=== PATIENT | female | born 1985 | race Caucasian/White ===

== ENCOUNTER 2017-12-01 15:50 | Emergency (ER) | payer MEDICAID ==
[~2017-12-01] VITALS: Ht 175.3 cm; Wt 79.4 kg
[~2017-12-01 15:50] MED LIST: ALBU17AE23 IH; AMOX500C2 PO; CYCL10TA9 PO; FERR-57 PO; HYDR-3583 PO; ONDA-43 PO; OXYC-12 PO; PREN1TAB39 PO; SERT50TA PO
--- OUTSIDE RECORDS SUMMARY | 2017-12-01 15:56 | XMS REPORT | Continuity Of Care Document ---
Author Author [facility] Organization [facility] Address [address] [place] [address] Phone Care Team Providers Care Incubator Machine Operator Name Role Phone UNASSIGNED, ED PHYSICIAN Unavailable Unavailable LEIF SALAMANCA, LENNY Morocho AT [phone] DARLEEN SALAMANCA, MAYRA Colvin [facility], [facility] PP Results Lab Results Visit/Account #[id number] (March 31, 2016 8:54pm - April 01, 2016 12:51am) Test Result Date/Time 19103-1: COMPLETE BLOOD COUNT WITH DIFF WHITE BLOOD COUNT(4.0-11.0 10E3/UL) 8.0 10E3/UL March 31, 2016 10:43pm RED BLOOD COUNT(4.00-5.20 10E6/UL) 3.67 10E6/UL March 31, 2016 10:43pm HEMOGLOBIN(12.0-16.0 G/DL) 10.7 G/DL March 31, 2016 10:43pm HEMATOCRIT(36.0-46.0 %) 33.6 % March 31, 2016 10:43pm MEAN CORPUSCULAR VOLUME(82.0-100.0 FL) 91.6 FL March 31, 2016 10:43pm 34480-1: MEAN CORPUSCULAR HEMOGLOBIN(26.0-34.0 PG) 29.2 PG March 31, 2016 10:43pm MEAN CORPUSCULAR HGB CONC(31.5-36.5 G/DL) 31.8 G/DL March 31, 2016 10:43pm RED CELL DISTRIBUTION WIDTH(11.5-14.5 %) 14.1 % March 31, 2016 10:43pm 777-3: PLATELET COUNT(150-450 10E3/UL) 233 10E3/UL March 31, 2016 10:43pm MEAN PLATELET VOLUME(8.2-12.4 FL) 10.7 FL March 31, 2016 10:43pm 770-8: NEUTROPHILS % (AUTO)(40-70 %) 45 % March 31, 2016 10:43pm LYMPHOCYTES % (AUTO)(15-45 %) 47 % March 31, 2016 10:43pm 5905-5: MONOCYTES % (AUTO)(2-10 %) 6 % March 31, 2016 10:43pm 713-8: EOSINOPHILS % (AUTO)(0-6 %) 1 % March 31, 2016 10:43pm 706-2: BASOPHILS % (AUTO)(0-1 %) 0 % March 31, 2016 10:43pm 94730-8: IMMATURE GRANS % (AUTO)(0-0 %) 0 % March 31, 2016 10:43pm NUCLEATED RBCS (AUTO)(0-0 %) 0 % March 31, 2016 10:43pm 751-8: NEUTROPHILS # (AUTO)(2.5-7.5 10E3/UL) 3.6 10E3/UL March 31, 2016 10:43pm 73159-1: LYMPHOCYTES # (AUTO)(1.0-4.0 10E3/UL) 3.8 10E3/UL March 31, 2016 10:43pm 742-7: MONOCYTES # (AUTO)(0.2-0.8 10E3/UL) 0.5 10E3/UL March 31, 2016 10:43pm 711-2: EOSINOPHILS # (AUTO)(0.0-0.4 10E3/UL) 0.1 10E3/UL March 31, 2016 10:43pm 704-7: BASOPHILS # (AUTO)(0.0-0.2 10E3/UL) 0.0 10E3/UL March 31, 2016 10:43pm IMMATURE GRANS # (AUTO)(0.0-0.0 10E3/UL) 0.0 10E3/UL March 31, 2016 10:43pm DIFF TYPE AUTOMATED March 31, 2016 10:43pm UA WITH SCREEN FOR CULTURE 5778-6: COLOR,URINE YELLOW March 31, 2016 10:35pm 67081-6: CLARITY,URINE CLEAR March 31, 2016 10:35pm GLUCOSE, URINE(NEGATIVE MG/DL) NEGATIVE MG/DL March 31, 2016 10:35pm URINE BILIRUBIN(NEGATIVE) NEGATIVE March 31, 2016 10:35pm KETONES,URINE(NEGATIVE MG/DL) 15 MG/DL March 31, 2016 10:35pm URINE SPECIFIC GRAVITY(1.001-1.035) Greater than or equal to 1.030 March 31, 2016 10:35pm 14066-3: URINE BLOOD(NEGATIVE) NEGATIVE March 31, 2016 10:35pm 2756-5: URINE PH(5.0-9.0) 6.0 March 31, 2016 10:35pm URINE PROTEIN(Less than 20 MG/DL) NEGATIVE MG/DL March 31, 2016 10:35pm 19968-8: URINE UROBILINOGEN(0.2-1.0 MG/DL) 0.2 MG/DL March 31, 2016 10:35pm URINE NITRITE(NEGATIVE) NEGATIVE March 31, 2016 10:35pm 5799-2: LEUKOCYTE ESTERASE ,URINE(NEGATIVE) NEGATIVE March 31, 2016 10:35pm 630-4: URINE CULTURE NOT INDICATED March 31, 2016 10:35pm URINE MICROSCOPIC REQUIRED NO March 31, 2016 10:35pm 93867-0: COMPLETE METABOLIC PROFILE GLUCOSE(70-110 MG/DL) 89 MG/DL March 31, 2016 10:43pm BLOOD UREA NITROGEN(6-20 MG/DL) 12 MG/DL March 31, 2016 10:43pm CREATININE(0.50-1.20 MG/DL) 0.80 MG/DL March 31, 2016 10:43pm 03120-8: EST GLOMERULAR FILTRATION RATE(Greater than or equal to 60) Greater than or equal to 60 Result Comments: If the patient is of -[place] Citizen descent/extraction multiply the eGFR value by 1.212 to obtain the actual eGFR. >=60 mg/dL Normal 30-59 mg/dL Moderate Kidney Disease 15-29 mg/dL Severe Kidney Disease <15 mg/dL Kidney Failure March 31, 2016 10:43pm BUN CREATININE RATIO(10.0-20.0 RATIO) 15.0 RATIO March 31, 2016 10:43pm SODIUM(135-145 MMOL/L) 142 MMOL/L March 31, 2016 10:43pm POTASSIUM(3.6-5.0 MMOL/L) 3.1 MMOL/L March 31, 2016 10:43pm CHLORIDE(101-111 MMOL/L) 105 MMOL/L March 31, 2016 10:43pm 8-9: CO2(21-31 MMOL/L) 25 MMOL/L March 31, 2016 10:43pm ANION GAP(8-18) 15 March 31, 2016 10:43pm OSMO CALCULATED(270.0-290.0) 282.4 March 31, 2016 10:43pm CALCIUM(8.5-10.5 MG/DL) 9.2 MG/DL March 31, 2016 10:43pm BILIRUBIN,TOTAL(0.1-1.2 MG/DL) 0.5 MG/DL March 31, 2016 10:43pm ALKALINE PHOSPHATASE(42-121 IU/L) 48 IU/L March 31, 2016 10:43pm ASPARTATE AMINO TRANSFERASE(10-42 IU/L) 40 IU/L March 31, 2016 10:43pm ALANINE AMINOTRANSFERASE(10-60 IU/L) 20 IU/L March 31, 2016 10:43pm TOTAL PROTEIN(6.4-8.2 G/DL) 7.2 G/DL March 31, 2016 10:43pm ALBUMIN(3.5-5.5 G/DL) 4.3 G/DL March 31, 2016 10:43pm GLOBULIN(2.4-3.6) 2.9 March 31, 2016 10:43pm ALBUMIN/GLOBULIN RATIO(0.9-1.8 RATIO) 1.5 RATIO March 31, 2016 10:43pm SERUM HCG, QUALITATIVE 0-5: SERUM HCG, QUALITATIVE(NEGATIVE) NEGATIVE March 31, 2016 10:43pm DRUGS OF ABUSE, URINE 76626-2: OPIATE SCREEN,URINE(NEGATIVE) NEGATIVE March 31, 2016 10:35pm 33979-8: BARBITURATES SCREEN, URINE(NEGATIVE) NEGATIVE March 31, 2016 10:35pm 61070-2: AMPHETAMINE SCREEN,URINE(NEGATIVE) NEGATIVE March 31, 2016 10:35pm BENZODIAZEPINES SCREEN,URINE(NEGATIVE) NEGATIVE March 31, 2016 10:35pm COCAINE SCREEN, URINE(NEGATIVE) NEGATIVE Result Comments: CUTOFF: 300 ng/mL March 31, 2016 10:35pm CANNABINOID SCREEN,URINE(NEGATIVE) PRESUMPTIVE POSITIVE March 31, 2016 10:35pm Allergies and Adverse Reactions Allergies and Adverse Reactions Patient Unit Number: [id number] Agent Type Reaction Severity Status NO KNOWN ALLERGIES Drug Allergy Unknown Unknown Active Problem List Problem List Visit/Account #[id number] (March 31, 2016 8:54pm - April 01, 2016 12:51am) Acute Problems: Code/Condition Comments Documented Start Date Documented Resolved Date Code (s) Marijuana use ICD10: F12.10 Cannabis abuse ICD9: 305.20 Cannabis abuse SNOMED: 39804443 Cannabis abuse Hypokalemia ICD10: E87.6 Hypokalemia ICD9: 276.8 Hypokalemia SNOMED: 44555807 Hypokalemia Plan of Care Plan Of Care Visit/Account #[id number] (March 31, 2016 8:54pm - April 01, 2016 12:51am) Patient Instructions Take potassium as prescribed Avoid utilizing illicit substances such as marijuana Followup with PCP as needed Vital Signs Vital Signs Visit/Account #[id number] (March 31, 2016 8:54pm - April 01, 2016 12:51am) Sign First Result Last Result Code(s) Body Mass Index Body Mass Index (BMI): 25.0 kg/m2 On March 31, 2016 8:54pm 65418-7 BMI (body mass index) Body Mass Index as a Calculated Value 25.9 kg/m2 On March 31, 2016 8:54pm 16130-4 BMI (body mass index) Body Surface Area as a Calculated Value 1.95 m2 On March 31, 2016 8:54pm 3140-1 BSA (body surface area) Height (Feet/Inches) 5 [ft_us] 9 [in_us] On March 31, 2016 8:54pm Temperature in Fahrenheit Temperature (Fahrenheit): 97.4 [degF] On March 31, 2016 8:54pm Temperature (Fahrenheit): 97.6 [degF] On April 01, 2016 12:30am 8310-5 Body Temperature Weight in Kilograms Weight (Kilograms): 79.55 kg On March 31, 2016 8:54pm 3141-9 Weight Measured 60972-7 Body weight measured in kilograms Functional Status Functional and Cognitive Status No Functional Status Data Medications Discharge Medications - Medications that patient should continue to take. Review with physician Visit/Account #[id number] (March 31, 2016 8:54pm - April 01, 2016 12:51am) Medication Route Sig/Schedule Precondition/Indication Comments/Instructions Codes POTASSIUM CHLORIDE(POTASSIUM CHLORIDE) 20 MEQ TAB.ER.PRT Dose: 20 MEQ ORAL 3 TIMES A DAY Potassium Chloride 20 MEQ Extended Release Oral Tablet (RxNorm): 323804 POTASSIUM CHLORIDE (POTASSIUM CHLORIDE) NDC: 59210758102 History Of Encounters Encounters Visit/Account #[id number] (March 31, 2016 8:54pm - April 01, 2016 12:51am) Account Status Physican Of Record Reason For Visit Visit Diagnosis Start Date/Time Stop Date/Time ER LENNY YADAV MD ABD CRAMPING, PREG X 7 WKS R10.31: RIGHT LOWER QUADRANT PAIN ICD10 Mar 31, 2016 8:54pm Apr 01, 2016 12:51am History of Procedures Procedure List No procedures recorded. Discharge Instructions Discharge Instructions Visit/Account #[id number] (March 31, 2016 8:54pm - April 01, 2016 12:51am) DISCHARGE INSTRUCTIONS Physician Documentation Social History Social History No Social History Data. Immunizations Immunizations Patient Unit Number: [id number] Immunizations No immunizations recorded.
--- OUTSIDE RECORDS SUMMARY | 2017-12-01 15:56 | XMS REPORT | Continuity Of Care Document ---
Author Author [facility] Organization [facility] Address [address] [place] [address] Phone Care Team Providers Care Inventory Audit Clerk Name Role Phone JELLY SALAMANCA, HELLEN AT Results Lab Results Visit/Account #[id number] (July 22, 2015 9:16am - July 22, 2015 12:24pm ) Test Result Date/Time 16602-5: COMPLETE BLOOD COUNT WITH DIFF WHITE BLOOD COUNT(4.0-11.0 10E3/UL) 9.6 10E3/UL July 22, 2015 9:30am RED BLOOD COUNT(4.00-5.20 10E6/UL) 3.95 10E6/UL July 22, 2015 9:30am HEMOGLOBIN(12.0-16.0 G/DL) 11.7 G/DL July 22, 2015 9:30am HEMATOCRIT(36.0-46.0 %) 36.1 % July 22, 2015 9:30am MEAN CORPUSCULAR VOLUME(82.0-100.0 FL) 91.4 FL July 22, 2015 9:30am 34263-4: MEAN CORPUSCULAR HEMOGLOBIN(26.0-34.0 PG) 29.6 PG July 22, 2015 9:30am MEAN CORPUSCULAR HGB CONC(31.5-36.5 G/DL) 32.4 G/DL July 22, 2015 9:30am RED CELL DISTRIBUTION WIDTH(11.5-14.5 %) 12.7 % July 22, 2015 9:30am 777-3: PLATELET COUNT(150-450 10E3/UL) 282 10E3/UL July 22, 2015 9:30am MEAN PLATELET VOLUME(8.2-12.4 FL) 10.4 FL July 22, 2015 9:30am 770-8: NEUTROPHILS % (AUTO)(40-70 %) 55 % July 22, 2015 9:30am LYMPHOCYTES % (AUTO)(15-45 %) 37 % July 22, 2015 9:30am 5905-5: MONOCYTES % (AUTO)(2-10 %) 6 % July 22, 2015 9:30am 713-8: EOSINOPHILS % (AUTO)(0-6 %) 1 % July 22, 2015 9:30am 706-2: BASOPHILS % (AUTO)(0-1 %) 1 % July 22, 2015 9:30am 89958-4: IMMATURE GRANS % (AUTO)(0-0 %) 1 % July 22, 2015 9:30am NUCLEATED RBCS (AUTO)(0-0 %) 0 % July 22, 2015 9:30am 751-8: NEUTROPHILS # (AUTO)(2.5-7.5 10E3/UL) 5.3 10E3/UL July 22, 2015 9:30am 61775-6: LYMPHOCYTES # (AUTO)(1.0-4.0 10E3/UL) 3.5 10E3/UL July 22, 2015 9:30am 742-7: MONOCYTES # (AUTO)(0.2-0.8 10E3/UL) 0.5 10E3/UL July 22, 2015 9:30am 711-2: EOSINOPHILS # (AUTO)(0.0-0.4 10E3/UL) 0.1 10E3/UL July 22, 2015 9:30am 704-7: BASOPHILS # (AUTO)(0.0-0.2 10E3/UL) 0.1 10E3/UL July 22, 2015 9:30am IMMATURE GRANS # (AUTO)(0.0-0.0 10E3/UL) 0.1 10E3/UL July 22, 2015 9:30am DIFF TYPE AUTOMATED July 22, 2015 9:30am UA WITH SCREEN FOR CULTURE 5778-6: COLOR,URINE YELLOW July 22, 2015 9:20am 09998-4: CLARITY,URINE SL CLOUDY July 22, 2015 9:20am GLUCOSE, URINE(NEGATIVE MG/DL) NEGATIVE MG/DL July 22, 2015 9:20am URINE BILIRUBIN(NEGATIVE) NEGATIVE July 22, 2015 9:20am 44979-9: KETONES,URINE(NEGATIVE MG/DL) NEGATIVE MG/DL July 22, 2015 9:20am 2965-2: URINE SPECIFIC GRAVITY(1.001-1.035) 1.025 July 22, 2015 9:20am 64013-9: URINE BLOOD(NEGATIVE) NEGATIVE July 22, 2015 9:20am 2756-5: URINE PH(5.0-9.0) 6.5 July 22, 2015 9:20am URINE PROTEIN(Less than 20 MG/DL) NEGATIVE MG/DL July 22, 2015 9:20am URINE UROBILINOGEN(0.2-1.0 MG/DL) 0.2 MG/DL July 22, 2015 9:20am URINE NITRITE(NEGATIVE) NEGATIVE July 22, 2015 9:20am 5799-2: LEUKOCYTE ESTERASE ,URINE(NEGATIVE) NEGATIVE July 22, 2015 9:20am 630-4: URINE CULTURE NOT INDICATED July 22, 2015 9:20am URINE MICROSCOPIC REQUIRED NO July 22, 2015 9:20am 76545-7: COMPLETE METABOLIC PROFILE GLUCOSE(70-110 MG/DL) 110 MG/DL July 22, 2015 9:30am BLOOD UREA NITROGEN(6-20 MG/DL) 15 MG/DL July 22, 2015 9:30am CREATININE(0.50-1.20 MG/DL) 0.77 MG/DL July 22, 2015 9:30am 20874-7: EST GLOMERULAR FILTRATION RATE(Greater than or equal to 60) Greater than or equal to 60 Result Comments: If the patient is of -[place] descent/extraction multiply the eGFR value by 1.212 to obtain the actual eGFR. >=60 mg/dL Normal 30-59 mg/dL Moderate Kidney Disease 15-29 mg/dL Severe Kidney Disease <15 mg/dL Kidney Failure July 22, 2015 9:30am BUN CREATININE RATIO(10.0-20.0 RATIO) 19.0 RATIO July 22, 2015 9:30am SODIUM(135-145 MMOL/L) 137 MMOL/L July 22, 2015 9:30am POTASSIUM(3.6-5.0 MMOL/L) 3.6 MMOL/L July 22, 2015 9:30am CHLORIDE(101-111 MMOL/L) 105 MMOL/L July 22, 2015 9:30am 8-9: CO2(21-31 MMOL/L) 25.0 MMOL/L July 22, 2015 9:30am 30561-4: ANION GAP(8-18) 11 July 22, 2015 9:30am OSMO CALCULATED(270.0-290.0) 275.3 July 22, 2015 9:30am CALCIUM(8.5-10.5 MG/DL) 8.7 MG/DL July 22, 2015 9:30am BILIRUBIN,TOTAL(0.1-1.2 MG/DL) 0.5 MG/DL July 22, 2015 9:30am ALKALINE PHOSPHATASE(42-121 IU/L) 79 IU/L July 22, 2015 9:30am ASPARTATE AMINO TRANSFERASE(10-42 IU/L) 26 IU/L July 22, 2015 9:30am ALANINE AMINOTRANSFERASE(10-60 IU/L) 17 IU/L July 22, 2015 9:30am 62194-3: TOTAL PROTEIN(6.4-8.2 G/DL) 7.8 G/DL July 22, 2015 9:30am ALBUMIN(3.5-5.5 G/DL) 4.1 G/DL July 22, 2015 9:30am 2336-6: GLOBULIN(2.4-3.6) 3.7 July 22, 2015 9:30am ALBUMIN/GLOBULIN RATIO(0.9-1.8 RATIO) 1.1 RATIO July 22, 2015 9:30am 3040-3: LIPASE 3040-3: LIPASE(22-51 U/L) 19 U/L July 22, 2015 9:30am SERUM HCG, QUALITATIVE 2110-5: SERUM HCG, QUALITATIVE(NEGATIVE) NEGATIVE July 22, 2015 9:30am Microbiology Results Visit/Account #[id number] (July 22, 2015 9:16am - July 22, 2015 12:24pm ) Procedure Result 667-6: ANA ROSA PREP OTHER 667-6: ANA ROSA PREP OTHER Result Instance On July 22, 2015 11:50am Source: [facility] Result Prompts: ANA ROSA RESULT NO YEAST OR FUNGAL ELEMENTS SEEN 41563-1: CHLAMYDIA TRACHOMATIS (PCR) 64708-7: CHLAMYDIA TRACHOMATIS (PCR) Result Instance On July 22, 2015 11:50am Source: [facility] Result Prompts: CHLAMYDIA TRACHOMATIS POSITIVE NEISSERIA GONORRHOEAE (PCR) NEISSERIA GONORRHOEAE (PCR) Result Instance On July 22, 2015 11:50am Source: [facility] Result Prompts: NEISSERIA GONORRHOEAE NEGATIVE Allergies and Adverse Reactions Allergies and Adverse Reactions Patient Unit Number: [id number] Agent Type Reaction Severity Status NO KNOWN ALLERGIES Drug Allergy Unknown Unknown Active Problem List Problem List Visit/Account #[id number] (July 22, 2015 9:16am - July 22, 2015 12:24pm ) Acute Problems: Code/Condition Comments Documented Start Date Documented Resolved Date Code (s) PID (acute pelvic inflammatory disease) ICD10: N73.0 Acute pelvic inflammatory disease ICD9: 614.3 Acute pelvic inflammatory disease SNOMED: 220941749 Acute pelvic inflammatory disease Plan of Care Plan Of Care Visit/Account #[id number] (July 22, 2015 9:16am - July 22, 2015 12:24pm ) Patient Instructions Take doxycycline as prescribed twice daily x 14 days, follow-up with primary care provider. Vital Signs Vital Signs Visit/Account #[id number] (July 22, 2015 9:16am - July 22, 2015 12:24pm ) Sign First Result Last Result Code(s) Body Mass Index Body Mass Index (BMI): 30.0 kg/m2 On July 22, 2015 9:13am 42936-2 BMI (body mass index) Body Mass Index as a Calculated Value 31.0 kg/m2 On July 22, 2015 9:13am 40736-0 BMI (body mass index) Body Surface Area as a Calculated Value 2.11 m2 On July 22, 2015 9:13am 3140-1 BSA (body surface area) Height (Feet/Inches) 5 [ft_us] 9 [in_us] On July 22, 2015 9:13am Temperature in Fahrenheit Temperature (Fahrenheit): 97.2 [degF] On July 22, 2015 9:13am Temperature (Fahrenheit): 97.9 [degF] On July 22, 2015 12:20pm 8310-5 Body Temperature Weight in Kilograms Weight (Kilograms): 95.2 kg On July 22, 2015 9:13am 3141-9 Weight Measured 45923-1 Body weight measured in kilograms Functional Status Functional and Cognitive Status No Functional Status Data Medications Inpatient/Ordered Medications - Medications administered during hospital visit Visit/Account #[id number] (July 22, 2015 9:16am - July 22, 2015 12:24pm ) Medication Route Sig/Schedule Precondition/Indication Comments/Instructions Codes SUBLIMAZE INJ(FentaNYL CITRATE) 100 MCG/2 ML INJECTION Dose: 1 ML INTRAVEN NOW Rx Order Comments: Order placed as verified: Dose Warnings differ from reordering clerk Dose Warnings differ from reordering clerk Label Comments: GIVE BY SLOW PUSH OVER 2-5 MIN MAY INCREASE FALL RISK Fentanyl 0.05 MG/ML Injectable Solution (RxNorm): 820904 SUBLIMAZE INJ (FentaNYL CITRATE) NDC: 39237629428 ROCEPHIN INJ(CefTRIAXone SOD) 250 MG INJECTION Dose: 250 MG INTRAMUSC NOW Rx Order Comments: Order placed as verified: Allergies/Duplicates/Interactions differ from reordering clerk Dose Warnings differ from reordering clerk Ceftriaxone 250 MG/ML Injectable Solution (RxNorm): 378128 ROCEPHIN INJ (CefTRIAXone SOD) NDC: 21128000299 XYLOCAINE-MPF 1% INJ(LIDOCAINE HCL/PF) 20 MG/2 ML INJECTION Dose: 0.9 ML INTRAMUSC .DRUG DILUTION Rx Order Comments: Order placed as verified: Allergies/Duplicates/Interactions differ from reordering clerk Dose Warnings differ from reordering clerk Special Dose Instructions: DILUTE 250 MG ROCEPHIN VIAL WITH 0.9 ML FOR FINAL CONCENTRATION OF 250 MG/ML Lidocaine Hydrochloride 10 MG/ML Injectable Solution [Xylocaine] (RxNorm): 3617341 XYLOCAINE-MPF 1% INJ (LIDOCAINE HCL/PF) NDC: 88351334960 ZITHROMAX(AZITHROMYCIN) 500 MG TAB Dose: 1000 MG ORAL NOW Rx Order Comments: Order placed as verified: Dose Warnings differ from reordering clerk Dose Warnings differ from reordering clerk Azithromycin 500 MG Oral Tablet (RxNorm): 454760 ZITHROMAX (AZITHROMYCIN) NDC: 43390213746 TORADOL INJ(KETOROLAC TROMETHAMINE) 30 MG/ML INJECTION Dose: 1 ML INTRAVEN NOW Rx Order Comments: Order placed as verified: Dose Warnings differ from reordering clerk Dose Warnings differ from reordering clerk Label Comments: DO NOT EXCEED 5 DAYS OF THERAPY Ketorolac Tromethamine 30 MG/ML Injectable Solution (RxNorm): 132076 TORADOL INJ (KETOROLAC TROMETHAMINE) NDC: 89476312134 Discharge Medications - Medications that patient should continue to take. Review with physician Visit/Account #[id number] (July 22, 2015 9:16am - July 22, 2015 12:24pm ) Medication Route Sig/Schedule Precondition/Indication Comments/Instructions Codes VIBRAMYCIN(DOXYCYCLINE HYCLATE) 100 MG CAP Dose: 100 MG ORAL TWICE A DAY doxycycline hyclate 100 MG Oral Capsule (RxNorm): 0239675 VIBRAMYCIN (DOXYCYCLINE HYCLATE) [facility]: [phone] History Of Encounters Encounters Visit/Account #[id number] (July 22, 2015 9:16am - July 22, 2015 12:24pm ) Account Status Physican Of Record Reason For Visit Visit Diagnosis Start Date/Time Stop Date/Time ER HELLEN REAVES MD ABDOMINAL PAIN R10.9: UNSPECIFIED ABDOMINAL PAIN ICD10 Jul 22, 2015 9:16am Jul 22, 2015 12:24pm History of Procedures Procedure List No procedures recorded. Discharge Instructions Discharge Instructions Visit/Account #[id number] (July 22, 2015 9:16am - July 22, 2015 12:24pm ) DISCHARGE INSTRUCTIONS Physician Documentation Social History Social History No Social History Data. Immunizations Immunizations Patient Unit Number: [id number] Immunizations No immunizations recorded.
--- OUTSIDE RECORDS SUMMARY | 2017-12-01 15:57 | XMS REPORT | Continuity Of Care Document ---
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 Name Role Phone UNASSIGNED, ED PHYSICIAN Unavailable Unavailable DARLEEN SALAMANCA, MAYRA Colvin [facility], [facility] KAREN SALAMANCA, ONESIMO Muñiz AT Results Lab Results Visit/Account #[id number] (March 09, 2016 5:56am - March 09, 2016 7:13am) Test Result Date/Time 19822-9: COMPLETE BLOOD COUNT WITH DIFF WHITE BLOOD COUNT(4.0-11.0 10E3/UL) 8.8 10E3/UL March 09, 2016 6:10am RED BLOOD COUNT(4.00-5.20 10E6/UL) 4.12 10E6/UL March 09, 2016 6:10am HEMOGLOBIN(12.0-16.0 G/DL) 12.0 G/DL March 09, 2016 6:10am HEMATOCRIT(36.0-46.0 %) 36.7 % March 09, 2016 6:10am MEAN CORPUSCULAR VOLUME(82.0-100.0 FL) 89.1 FL March 09, 2016 6:10am 59591-5: MEAN CORPUSCULAR HEMOGLOBIN(26.0-34.0 PG) 29.1 PG March 09, 2016 6:10am MEAN CORPUSCULAR HGB CONC(31.5-36.5 G/DL) 32.7 G/DL March 09, 2016 6:10am RED CELL DISTRIBUTION WIDTH(11.5-14.5 %) 13.7 % March 09, 2016 6:10am 777-3: PLATELET COUNT(150-450 10E3/UL) 237 10E3/UL March 09, 2016 6:10am MEAN PLATELET VOLUME(8.2-12.4 FL) 11.0 FL March 09, 2016 6:10am 770-8: NEUTROPHILS % (AUTO)(40-70 %) 46 % March 09, 2016 6:10am LYMPHOCYTES % (AUTO)(15-45 %) 44 % March 09, 2016 6:10a 5905-5: MONOCYTES % (AUTO)(2-10 %) 7 % March 09, 2016 [facility] 713-8: EOSINOPHILS % (AUTO)(0-6 %) 1 % March 09, 2016 6:10am 706-2: BASOPHILS % (AUTO)(0-1 %) 1 % March 09, 2016 6:[facility] 37982-4: IMMATURE GRANS % (AUTO)(0-0 %) 0 % March 09, 2016 6:10am NUCLEATED RBCS (AUTO)(0-0 %) 0 % March 09, 2016 6:10a 751-8: NEUTROPHILS # (AUTO)(2.5-7.5 10E3/UL) 4.1 10E3/UL March 09, 2016 6:10am 86784-9: LYMPHOCYTES # (AUTO)(1.0-4.0 10E3/UL) 3.9 10E3/UL March 09, 2016 [facility] 742-7: MONOCYTES # (AUTO)(0.2-0.8 10E3/UL) 0.6 10E3/UL March 09, 2016 6:10am 711-2: EOSINOPHILS # (AUTO)(0.0-0.4 10E3/UL) 0.1 10E3/UL March 09, 2016 6:10am 704-7: BASOPHILS # (AUTO)(0.0-0.2 10E3/UL) 0.1 10E3/UL March 09, 2016 6:10am IMMATURE GRANS # (AUTO)(0.0-0.0 10E3/UL) 0.0 10E3/UL March 09, 2016 6:10am DIFF TYPE AUTOMATED March 09, 2016 6:10am UA WITH SCREEN FOR CULTURE 5778-6: COLOR,URINE YELLOW March 09, 2016 5:51am 34872-8: CLARITY,URINE CLEAR March 09, 2016 5:51am GLUCOSE, URINE(NEGATIVE MG/DL) NEGATIVE MG/DL March 09, 2016 5:51am URINE BILIRUBIN(NEGATIVE) NEGATIVE March 09, 2016 5:51am KETONES,URINE(NEGATIVE MG/DL) NEGATIVE MG/DL March 09, 2016 5:51am URINE SPECIFIC GRAVITY(1.001-1.035) Greater than or equal to 1.030 March 09, 2016 5:51am 09838-1: URINE BLOOD(NEGATIVE) NEGATIVE March 09, 2016 5:51am 2756-5: URINE PH(5.0-9.0) 5.5 March 09, 2016 5:51am URINE PROTEIN(Less than 20 MG/DL) NEGATIVE MG/DL March 09, 2016 5:51am 82200-9: URINE UROBILINOGEN(0.2-1.0 MG/DL) 0.2 MG/DL March 09, 2016 5:51am URINE NITRITE(NEGATIVE) NEGATIVE March 09, 2016 5:51am 5799-2: LEUKOCYTE ESTERASE ,URINE(NEGATIVE) NEGATIVE March 09, 2016 5:51am 630-4: URINE CULTURE NOT INDICATED March 09, 2016 5:51am URINE MICROSCOPIC REQUIRED NO March 09, 2016 5:51am 92291-7: COMPLETE METABOLIC PROFILE GLUCOSE(70-110 MG/DL) 102 MG/DL March 09, 2016 6:10am BLOOD UREA NITROGEN(6-20 MG/DL) 18 MG/DL March 09, 2016 6:10am CREATININE(0.50-1.20 MG/DL) 0.68 MG/DL March 09, 2016 6:10am 34752-0: EST GLOMERULAR FILTRATION RATE(Greater than or equal to 60) Greater than or equal to 60 Result Comments: If the patient is of -[place] descent/extraction multiply the eGFR value by 1.212 to obtain the actual eGFR. >=60 mg/dL Normal 30-59 mg/dL Moderate Kidney Disease 15-29 mg/dL Severe Kidney Disease <15 mg/dL Kidney Failure March 09, 2016 6:10am BUN CREATININE RATIO(10.0-20.0 RATIO) 26.0 RATIO March 09, 2016 6:10am SODIUM(135-145 MMOL/L) 137 MMOL/L March 09, 2016 6:10am POTASSIUM(3.6-5.0 MMOL/L) 3.5 MMOL/L March 09, 2016 6:10am CHLORIDE(101-111 MMOL/L) 105 MMOL/L March 09, 2016 6:10am 2028-9: CO2(21-31 MMOL/L) 24 MMOL/L March 09, 2016 6:10am ANION GAP(8-18) 12 March 09, 2016 6:10am OSMO CALCULATED(270.0-290.0) 275.9 March 09, 2016 6:10am CALCIUM(8.5-10.5 MG/DL) 9.1 MG/DL March 09, 2016 6:10am BILIRUBIN,TOTAL(0.1-1.2 MG/DL) 0.3 MG/DL March 09, 2016 6:10am ALKALINE PHOSPHATASE(42-121 IU/L) 50 IU/L March 09, 2016 6:10am ASPARTATE AMINO TRANSFERASE(10-42 IU/L) 23 IU/L March 09, 2016 6:10am ALANINE AMINOTRANSFERASE(10-60 IU/L) 24 IU/L March 09, 2016 6:10am TOTAL PROTEIN(6.4-8.2 G/DL) 7.5 G/DL March 09, 2016 6:10am ALBUMIN(3.5-5.5 G/DL) 4.4 G/DL March 09, 2016 6:10am GLOBULIN(2.4-3.6) 3.1 March 09, 2016 6:10am ALBUMIN/GLOBULIN RATIO(0.9-1.8 RATIO) 1.4 RATIO March 09, 2016 6:10am 3040-3: LIPASE 3040-3: LIPASE(22-51 U/L) 23 U/L March 09, 2016 6:10am SERUM HCG, QUALITATIVE 0-5: SERUM HCG, QUALITATIVE(NEGATIVE) NEGATIVE March 09, 2016 6:10am ALCOHOL ALCOHOL(0.0-5.0 MG/DL) Less than 5.0 MG/DL March 09, 2016 6:10am DRUGS OF ABUSE, URINE 88674-4: OPIATE SCREEN,URINE(NEGATIVE) NEGATIVE March 09, 2016 5:51am 21162-8: BARBITURATES SCREEN, URINE(NEGATIVE) NEGATIVE March 09, 2016 5:51am 68216-8: AMPHETAMINE SCREEN,URINE(NEGATIVE) NEGATIVE March 09, 2016 5:51am BENZODIAZEPINES SCREEN,URINE(NEGATIVE) PRESUMPTIVE POSITIVE March 09, 2016 5:51am COCAINE SCREEN, URINE(NEGATIVE) NEGATIVE Result Comments: CUTOFF: 300 ng/mL March 09, 2016 5:51am CANNABINOID SCREEN,URINE(NEGATIVE) PRESUMPTIVE POSITIVE March 09, 2016 5:51am Allergies and Adverse Reactions Allergies and Adverse Reactions Patient Unit Number: [id number] Agent Type Reaction Severity Status NO KNOWN ALLERGIES Drug Allergy Unknown Unknown Active Problem List Problem List Visit/Account #[id number] (March 09, 2016 5:56am - March 09, 2016 7:13am) Acute Problems: Code/Condition Comments Documented Start Date Documented Resolved Date Code (s) Abdominal pain ICD10: R10.9 Abdominal pain ICD9: 789.00 Abdominal pain SNOMED: [id number] Abdominal pain Plan of Care Plan Of Care Visit/Account #[id number] (March 09, 2016 5:56am - March 09, 2016 7:13am) Patient Instructions 1. Return for any new or worse symptoms 2. Follow up with your primary doctor this week 3. Follow up with your [facility] in next few weeks Vital Signs Vital Signs Visit/Account #[id number] (March 09, 2016 5:56am - March 09, 2016 7:13am) Sign First Result Last Result Code(s) Temperature in Fahrenheit Temperature (Fahrenheit): 97.2 [degF] On March 09, 2016 5:55am Temperature (Fahrenheit): 97.2 [degF] On March 09, 2016 7:22am 8310-5 Body Temperature Weight in Kilograms Weight (Kilograms): 74.5 kg On March 09, 2016 5:55am 3141-9 Weight Measured 68535-9 Body weight measured in kilograms Functional Status Functional and Cognitive Status No Functional Status Data Medications Inpatient/Ordered Medications - Medications administered during hospital visit Visit/Account #[id number] (March 09, 2016 5:56am - March 09, 2016 7:13am) Medication Route Sig/Schedule Precondition/Indication Comments/Instructions Codes REGLAN INJ(METOCLOPRAMIDE HCL) 5 MG/ML INJECTION Dose: 2 ML INTRAVEN NOW Label Comments: MAY INCREASE FALL RISK Metoclopramide 5 MG/ML Injectable Solution (RxNorm): 761823 REGLAN INJ (METOCLOPRAMIDE HCL) [facility]: [id number] History Of Encounters Encounters Visit/Account #[id number] (March 09, 2016 5:56am - March 09, 2016 7:13am) Account Status Physican Of Record Reason For Visit Visit Diagnosis Start Date/Time Stop Date/Time ER ONESIMO JONES MD "I THINK I'M ," ABD PAIN Not Available March 09, 2016 5:56am March 09, 2016 7:13am History of Procedures Procedure List No procedures recorded. Discharge Instructions Discharge Instructions Visit/Account #[id number] (March 09, 2016 5:56am - March 09, 2016 7:13am) DISCHARGE INSTRUCTIONS Physician Documentation Social History Social History No Social History Data. Immunizations Immunizations Patient Unit Number: [id number] Immunizations No immunizations recorded.
--- OUTSIDE RECORDS SUMMARY | 2017-12-01 15:57 | XMS REPORT | Continuity Of Care Document ---
Author Author [facility] Organization [facility] Address [address] [place] [address] Phone Care Team Providers Care Wax Engraver Name Role Phone CORDELIA HUBER MD CP LUCAS ANDRADE DO CP Unavailable Unavailable OSWALDO GUERRERO MD AT Results Lab Results Visit/Account #[id number] (October 14, 2017 9:01am - October 18, 2017 4:02pm) Test Result Date/Time COMPLETE BLOOD COUNT WITH DIFF WHITE BLOOD COUNT(4.0-11.0 10E3/UL) 7.8 10E3/UL October 14, 2017 2:22pm 6.1 10E3/UL October 15, 2017 5:47am 6.9 10E3/UL October 16, 2017 5:54am 5.8 10E3/UL October 17, 2017 5:31am 5.3 10E3/UL October 18, 2017 11:40am RED BLOOD COUNT(4.00-5.20 10E6/UL) 3.11 10E6/UL October 14, 2017 2:22pm 2.96 10E6/UL October 15, 2017 5:47am 3.10 10E6/UL October 16, 2017 5:54am 3.49 10E6/UL October 17, 2017 5:31am 3.73 10E6/UL October 18, 2017 11:40am HEMOGLOBIN(12.0-16.0 G/DL) 9.3 G/DL October 14, 2017 2:22pm 9.0 G/DL October 15, 2017 5:47am 9.3 G/DL October 16, 2017 5:54am 10.4 G/DL October 17, 2017 5:31am 11.2 G/DL October 18, 2017 11:40am HEMATOCRIT(36.0-46.0 %) 27.5 % October 14, 2017 2:22pm 26.6 % October 15, 2017 5:47am 28.2 % October 16, 2017 5:54am 31.6 % October 17, 2017 5:31am 33.3 % October 18, 2017 11:40am MEAN CORPUSCULAR VOLUME(82.0-100.0 FL) 88.4 FL October 14, 2017 2:22pm 89.9 FL October 15, 2017 5:47am 91.0 FL October 16, 2017 5:54am 90.5 FL October 17, 2017 5:31am 89.3 FL October 18, 2017 11:40am MEAN CORPUSCULAR HEMOGLOBIN(26.0-34.0 PG) 29.9 PG October 14, 2017 2:22pm 30.4 PG October 15, 2017 5:47am 30.0 PG October 16, 2017 5:54am 29.8 PG October 17, 2017 5:31am 30.0 PG October 18, 2017 11:40am MEAN CORPUSCULAR HGB CONC(31.5-36.5 G/DL) 33.8 G/DL October 14, 2017 2:22pm 33.8 G/DL October 15, 2017 5:47am 33.0 G/DL October 16, 2017 5:54am 32.9 G/DL October 17, 2017 5:31am 33.6 G/DL October 18, 2017 11:40am RED CELL DISTRIBUTION WIDTH(11.5-14.5 %) 12.8 % October 14, 2017 2:22pm 12.9 % October 15, 2017 5:47am 13.1 % October 16, 2017 5:54am 12.8 % October 17, 2017 5:31am 12.5 % October 18, 2017 11:40am 777-3: PLATELET COUNT(150-450 10E3/UL) 210 10E3/UL October 14, 2017 2:22pm 174 10E3/UL October 15, 2017 5:47am 193 10E3/UL October 16, 2017 5:54am 232 10E3/UL October 17, 2017 5:31am 242 10E3/UL October 18, 2017 11:40am MEAN PLATELET VOLUME(8.2-12.4 FL) 11.0 FL October 14, 2017 2:22pm 10.5 FL October 15, 2017 5:47am 10.2 FL October 16, 2017 5:54am 10.6 FL October 17, 2017 5:31am 10.1 FL October 18, 2017 11:40am NEUTROPHILS % (AUTO)(40-70 %) 58 % October 14, 2017 2:22pm 46 % October 15, 2017 5:47am 55 % October 16, 2017 5:54am 73 % October 17, 2017 5:31am 60 % October 18, 2017 11:40am LYMPHOCYTES % (AUTO)(15-45 %) 31 % October 14, 2017 2:22pm 44 % October 15, 2017 5:47am 37 % October 16, 2017 5:54am 20 % October 17, 2017 5:31am 32 % October 18, 2017 11:40am MONOCYTES % (AUTO)(2-10 %) 8 % October 14, 2017 2:22pm 8 % October 15, 2017 5:47am 5 % October 16, 2017 5:54am 4 % October 17, 2017 5:31am 6 % October 18, 2017 11:40am EOSINOPHILS % (AUTO)(0-6 %) 2 % October 14, 2017 2:22pm 1 % October 15, 2017 5:47am 2 % October 16, 2017 5:54am 2 % October 17, 2017 5:31am 2 % October 18, 2017 11:40am BASOPHILS % (AUTO)(0-1 %) 0 % October 14, 2017 2:22pm 1 % October 15, 2017 5:47am 0 % October 16, 2017 5:54am 0 % October 17, 2017 5:31am 0 % October 18, 2017 11:40am IMMATURE GRANS % (AUTO)(0-0 %) 0 % October 14, 2017 2:22pm 1 % October 15, 2017 5:47am 0 % October 16, 2017 5:54am 1 % October 17, 2017 5:31am 0 % October 18, 2017 11:40am NUCLEATED RBCS (AUTO)(0-0 %) 0 % October 14, 2017 2:22pm 0 % October 15, 2017 5:47am 0 % October 16, 2017 5:54am 0 % October 17, 2017 5:31am 0 % October 18, 2017 11:40am NEUTROPHILS # (AUTO)(2.5-7.5 10E3/UL) 4.5 10E3/UL October 14, 2017 2:22pm 2.8 10E3/UL October 15, 2017 5:47am 3.8 10E3/UL October 16, 2017 5:54am 4.3 10E3/UL October 17, 2017 5:31am 3.2 10E3/UL October 18, 2017 11:40am LYMPHOCYTES # (AUTO)(1.0-4.0 10E3/UL) 2.4 10E3/UL October 14, 2017 2:22pm 2.7 10E3/UL October 15, 2017 5:47am 2.6 10E3/UL October 16, 2017 5:54am 1.2 10E3/UL October 17, 2017 5:31am 1.7 10E3/UL October 18, 2017 11:40am MONOCYTES # (AUTO)(0.2-0.8 10E3/UL) 0.6 10E3/UL October 14, 2017 2:22pm 0.5 10E3/UL October 15, 2017 5:47am 0.4 10E3/UL October 16, 2017 5:54am 0.2 10E3/UL October 17, 2017 5:31am 0.3 10E3/UL October 18, 2017 11:40am EOSINOPHILS # (AUTO)(0.0-0.4 10E3/UL) 0.2 10E3/UL October 14, 2017 2:22pm 0.1 10E3/UL October 15, 2017 5:47am 0.1 10E3/UL October 16, 2017 5:54am 0.1 10E3/UL October 17, 2017 5:31am 0.1 10E3/UL October 18, 2017 11:40am BASOPHILS # (AUTO)(0.0-0.2 10E3/UL) 0.0 10E3/UL October 14, 2017 2:22pm 0.0 10E3/UL October 15, 2017 5:47am 0.0 10E3/UL October 16, 2017 5:54am 0.0 10E3/UL October 17, 2017 5:31am 0.0 10E3/UL October 18, 2017 11:40am IMMATURE GRANS # (AUTO)(0.0-0.0 10E3/UL) 0.0 10E3/UL October 14, 2017 2:22pm 0.0 10E3/UL October 15, 2017 5:47am 0.0 10E3/UL October 16, 2017 5:54am 0.0 10E3/UL October 17, 2017 5:31am 0.0 10E3/UL October 18, 2017 11:40am DIFF TYPE AUTOMATED October 14, 2017 2:22pm AUTOMATED October 15, 2017 5:47am AUTOMATED October 16, 2017 5:54am AUTOMATED October 17, 2017 5:31am AUTOMATED October 18, 2017 11:40am RETIC PANEL RETICULOCYTE %(0.2-2.0 %) 1.8 % October 16, 2017 5:54am ABSOLUTE RETICS #(16-78 10E9/L) 57 10E9/L October 16, 2017 5:54am IMMATURE RETIC FRACTION(3.0-15.9 %) 13.9 % October 16, 2017 5:54am PROTHROMBIN TIME WITH INR PROTHROMBIN TIME(12.1-14.0 SEC) 13.0 SEC October 14, 2017 12:02pm 39689-6: INR 1.0 October 14, 2017 12:02pm PARTIAL THROMBOPLASTIN TIME PARTIAL THROMBOPLASTIN TIME(22.2-37.4 SEC) 32.5 SEC October 14, 2017 12:02pm COMPLETE METABOLIC PROFILE GLUCOSE(70-110 MG/DL) 114 MG/DL October 14, 2017 2:22pm 106 MG/DL October 15, 2017 5:47am 103 MG/DL October 16, 2017 5:54am 100 MG/DL October 17, 2017 5:30am 98 MG/DL October 18, 2017 11:40am BLOOD UREA NITROGEN(6-20 MG/DL) 13 MG/DL October 14, 2017 2:22pm 10 MG/DL October 15, 2017 5:47am 12 MG/DL October 16, 2017 5:54am 13 MG/DL October 17, 2017 5:30am 16 MG/DL October 18, 2017 11:40am CREATININE(0.50-1.20 MG/DL) 0.73 MG/DL October 14, 2017 2:22pm 0.65 MG/DL October 15, 2017 5:47am 0.64 MG/DL October 16, 2017 5:54am 0.59 MG/DL October 17, 2017 5:30am 0.63 MG/DL October 18, 2017 11:40am EST GLOMERULAR FILTRATION RATE(Greater than or equal to 60) Greater than or equal to 60 Result Comments: If the patient is of -Sudanese descent/extraction multiply the eGFR value by 1.212 to obtain the actual eGFR. >=60 mg/dL Normal 30-59 mg/dL Moderate Kidney Disease 15-29 mg/dL Severe Kidney Disease <15 mg/dL Kidney Failure October 14, 2017 2:22pm Greater than or equal to 60 Result Comments: If the patient is of -Sudanese descent/extraction multiply the eGFR value by 1.212 to obtain the actual eGFR. >=60 mg/dL Normal 30-59 mg/dL Moderate Kidney Disease 15-29 mg/dL Severe Kidney Disease <15 mg/dL Kidney Failure October 15, 2017 5:47am Greater than or equal to 60 Result Comments: If the patient is of -Sudanese descent/extraction multiply the eGFR value by 1.212 to obtain the actual eGFR. >=60 mg/dL Normal 30-59 mg/dL Moderate Kidney Disease 15-29 mg/dL Severe Kidney Disease <15 mg/dL Kidney Failure October 16, 2017 5:54am Greater than or equal to 60 Result Comments: If the patient is of -Sudanese descent/extraction multiply the eGFR value by 1.212 to obtain the actual eGFR. >=60 mg/dL Normal 30-59 mg/dL Moderate Kidney Disease 15-29 mg/dL Severe Kidney Disease <15 mg/dL Kidney Failure October 17, 2017 5:30am Greater than or equal to 60 Result Comments: If the patient is of -Sudanese descent/extraction multiply the eGFR value by 1.212 to obtain the actual eGFR. >=60 mg/dL Normal 30-59 mg/dL Moderate Kidney Disease 15-29 mg/dL Severe Kidney Disease <15 mg/dL Kidney Failure October 18, 2017 11:40am BUN CREATININE RATIO(10.0-20.0 RATIO) 18.0 RATIO October 14, 2017 2:22pm 15.0 RATIO October 15, 2017 5:47am 19.0 RATIO October 16, 2017 5:54am 22.0 RATIO October 17, 2017 5:30am 25.0 RATIO October 18, 2017 11:40am SODIUM(135-145 MMOL/L) 142 MMOL/L October 14, 2017 2:22pm 141 MMOL/L October 15, 2017 5:47am 138 MMOL/L October 16, 2017 5:54am 139 MMOL/L October 17, 2017 5:30am 137 MMOL/L October 18, 2017 11:40am POTASSIUM(3.6-5.0 MMOL/L) 2.8 MMOL/L October 14, 2017 2:22pm 3.7 MMOL/L October 15, 2017 5:47am 3.5 MMOL/L October 16, 2017 5:54am 3.6 MMOL/L October 17, 2017 5:30am 3.6 MMOL/L October 18, 2017 11:40am CHLORIDE(101-111 MMOL/L) 109 MMOL/L October 14, 2017 2:22pm 112 MMOL/L October 15, 2017 5:47am 107 MMOL/L October 16, 2017 5:54am 107 MMOL/L October 17, 2017 5:30am 104 MMOL/L October 18, 2017 11:40am CO2(21-31 MMOL/L) 24 MMOL/L October 14, 2017 2:22pm 23 MMOL/L October 15, 2017 5:47am 24 MMOL/L October 16, 2017 5:54am 24 MMOL/L October 17, 2017 5:30am 25 MMOL/L October 18, 2017 11:40am ANION GAP(8-18) 12 October 14, 2017 2:22pm 10 October 15, 2017 5:47am 11 October 16, 2017 5:54am 12 October 17, 2017 5:30am 12 October 18, 2017 11:40am OSMO CALCULATED(270.0-290.0) 284.1 October 14, 2017 2:22pm 280.7 October 15, 2017 5:47am 275.7 October 16, 2017 5:54am 277.7 October 17, 2017 5:30am 275.0 October 18, 2017 11:40am CALCIUM(8.5-10.5 MG/DL) 8.6 MG/DL October 14, 2017 2:22pm 8.2 MG/DL October 15, 2017 5:47am 8.5 MG/DL October 16, 2017 5:54am 8.7 MG/DL October 17, 2017 5:30am 9.0 MG/DL October 18, 2017 11:40am BILIRUBIN,TOTAL(0.1-1.2 MG/DL) 0.8 MG/DL October 14, 2017 2:22pm 0.4 MG/DL October 15, 2017 5:47am 0.1 MG/DL October 16, 2017 5:54am 0.4 MG/DL October 17, 2017 5:30am 0.3 MG/DL October 18, 2017 11:40am ALKALINE PHOSPHATASE(42-121 IU/L) 48 IU/L October 14, 2017 2:22pm 55 IU/L October 15, 2017 5:47am 56 IU/L October 16, 2017 5:54am 59 IU/L October 17, 2017 5:30am 63 IU/L October 18, 2017 11:40am ASPARTATE AMINO TRANSFERASE(10-42 IU/L) 22 IU/L October 14, 2017 2:22pm 29 IU/L October 15, 2017 5:47am 22 IU/L October 16, 2017 5:54am 17 IU/L October 17, 2017 5:30am 18 IU/L October 18, 2017 11:40am ALANINE AMINOTRANSFERASE(10-60 IU/L) 17 IU/L October 14, 2017 2:22pm 24 IU/L October 15, 2017 5:47am 26 IU/L October 16, 2017 5:54am 23 IU/L October 17, 2017 5:30am 19 IU/L October 18, 2017 11:40am TOTAL PROTEIN(6.4-8.2 G/DL) 6.1 G/DL October 14, 2017 2:22pm 5.9 G/DL October 15, 2017 5:47am 6.2 G/DL October 16, 2017 5:54am 7.0 G/DL October 17, 2017 5:30am 7.4 G/DL October 18, 2017 11:40am ALBUMIN(3.5-5.5 G/DL) 3.3 G/DL October 14, 2017 2:22pm 3.2 G/DL October 15, 2017 5:47am 3.3 G/DL October 16, 2017 5:54am 3.5 G/DL October 17, 2017 5:30am 3.7 G/DL October 18, 2017 11:40am GLOBULIN(2.4-3.6) 2.8 October 14, 2017 2:22pm 2.7 October 15, 2017 5:47am 2.9 October 16, 2017 5:54am 3.5 October 17, 2017 5:30am 3.7 October 18, 2017 11:40am ALBUMIN/GLOBULIN RATIO(0.9-1.8 RATIO) 1.2 RATIO October 14, 2017 2:22pm 1.2 RATIO October 15, 2017 5:47am 1.1 RATIO October 16, 2017 5:54am 1.0 RATIO October 17, 2017 5:30am 1.0 RATIO October 18, 2017 11:40am TOTAL IRON BINDING CAPACITY IRON BINDING CAPACITY, TOTAL(250-400 UG/DL) 330 UG/DL October 16, 2017 5:54am TRANSFERRIN(192-382 MG/DL) 236 MG/DL October 16, 2017 5:54am MAGNESIUM MAGNESIUM(1.8-2.5 MG/DL) 2.1 MG/DL October 14, 2017 12:02pm GGT GGT(7-64 IU/L) 9 IU/L October 14, 2017 12:02pm TOTAL CPK TOTAL CPK(22-269 IU/L) 228 IU/L October 14, 2017 9:47pm IRON IRON(40-160 UG/DL) 10 UG/DL October 16, 2017 5:54am FERRITIN FERRITIN(11.0-306.8 NG/ML) 17.9 NG/ML October 16, 2017 5:54am VITAMIN B12 AND FOLATE VITAMIN B12(180-914 PG/ML) 174 PG/ML Result Comments: REFERENCE RANGES: B12 NORMAL 180-914 PG/ML B12 INDETERMINATE 145-180 PG/ML B12 DEFICIENT <145 PG/ML October 16, 2017 5:54am FOLATE(5.90-24.80 NG/ML) 17.02 NG/ML Result Comments: The folate assay is not traceable to WHO standards. Patient values may shift upwards from previous values. Please note the new Reference Range and Deficiency cutoff values. Reference Range: 5.90 - 24.80 ng/ml Deficiency Cutoff: <4.00 ng/ml October 16, 2017 5:54am HIV 1/2 4TH GEN (AG/AB) HIV 1 AND/OR HIV 2 ABS(NEGATIVE) NEGATIVE October 14, 2017 12:02pm HIV 1 P24 ANTIGEN(NEGATIVE) NEGATIVE October 14, 2017 12:02pm DRUGS OF ABUSE, URINE OPIATE SCREEN,URINE(NEGATIVE) PRESUMPTIVE POSITIVE October 14, 2017 4:15pm BARBITURATES SCREEN, URINE(NEGATIVE) NEGATIVE October 14, 2017 4:15pm AMPHETAMINE SCREEN,URINE(NEGATIVE) PRESUMPTIVE POSITIVE October 14, 2017 4:15pm BENZODIAZEPINES SCREEN,URINE(NEGATIVE) NEGATIVE October 14, 2017 4:15pm COCAINE SCREEN, URINE(NEGATIVE) NEGATIVE October 14, 2017 4:15pm CANNABINOID SCREEN,URINE(NEGATIVE) PRESUMPTIVE POSITIVE October 14, 2017 4:15pm Microbiology Results Visit/Account #[id number] (October 14, 2017 9:01am - October 18, 2017 4:02pm) Procedure Result MRSA SCREEN FOR INFEC CONTROL MRSA SCREEN FOR INFEC CONTROL Result Instance On October 14, 2017 11:49am Source: NARE Special Result Comments: No growth Allergies and Adverse Reactions Allergies and Adverse Reactions Patient Unit Number: [id number] Agent Type Reaction Severity Status OXYCODONE Drug Allergy Unknown Severe Active Problem List Problem List Visit/Account #[id number] (October 14, 2017 9:01am - October 18, 2017 4:02pm) Active Problems: Code/Condition Comments Documented Start Date Documented Resolved Date Code (s) T34.532A FROSTBITE W TISSUE NECROSIS OF LEFT FINGER(S), INIT ENCNTR October 18, 2017 F31.9 BIPOLAR DISORDER, UNSPECIFIED October 18, 2017 F41.9 ANXIETY DISORDER, UNSPECIFIED October 18, 2017 Z59.0 HOMELESSNESS October 18, 2017 F10.20 ALCOHOL DEPENDENCE, UNCOMPLICATED October 18, 2017 R01.1 CARDIAC MURMUR, UNSPECIFIED October 18, 2017 F19.10 OTHER PSYCHOACTIVE SUBSTANCE ABUSE, UNCOMPLICATED October 18, 2017 K21.9 GASTRO-ESOPHAGEAL REFLUX DISEASE WITHOUT ESOPHAGITIS October 18, 2017 X31.XXXA EXPOSURE TO EXCESSIVE NATURAL COLD, INITIAL ENCOUNTER October 18, 2017 E87.6 HYPOKALEMIA October 18, 2017 Z68.25 BODY MASS INDEX (BMI) 25.0-25.9, ADULT October 18, 2017 E46 UNSPECIFIED PROTEIN-CALORIE MALNUTRITION October 18, 2017 D53.8 OTHER SPECIFIED NUTRITIONAL ANEMIAS October 18, 2017 G35 MULTIPLE SCLEROSIS October 18, 2017 T34.531A FROSTBITE W TISSUE NECROSIS OF RIGHT FINGER(S), INIT ENCNTR October 18, 2017 F15.10 OTHER STIMULANT ABUSE, UNCOMPLICATED October 18, 2017 J44.9 CHRONIC OBSTRUCTIVE PULMONARY DISEASE, UNSPECIFIED October 18, 2017 R51 HEADACHE October 18, 2017 F17.210 NICOTINE DEPENDENCE, CIGARETTES, UNCOMPLICATED October 18, 2017 Vital Signs Vital Signs No Vital Signs Data. Functional Status Functional and Cognitive Status No Functional Status Data Medications Home Medications - Medications that the patient was taking prior to arrival at the hospital Visit/Account #[id number] (October 14, 2017 9:01am - October 18, 2017 4:02pm) Medication Route Sig/Schedule Precondition/Indication Comments/Instructions Codes ZOLOFT(SERTRALINE HCL) 100 MG TAB Dose: 100 MG ORAL DAILY ZOLOFT (SERTRALINE HCL) NDC: 51520526356 FERROUS SULFATE(FERROUS SULFATE) 325 ( 65 )MG TABLET Dose: 325 MG ORAL DAILY FERROUS SULFATE (FERROUS SULFATE) NDC: 28227973498 CLONAZEPAM(ClonAZEPAM) 0.5 MG TABLET Dose: 0.5 MG ORAL BID ANXIETY/AGITATION Rx Instructions: PER [facility] LAST FILLED 02/22 CLONAZEPAM (ClonAZEPAM) NDC: 04551589421 Inpatient/Ordered Medications - Medications administered during hospital visit Visit/Account #[id number] (October 14, 2017 9:01am - October 18, 2017 4:02pm) Medication Route Sig/Schedule Precondition/Indication Comments/Instructions Codes NORCO 5-325(HYDROcodone BIT/ACETAMINOPHEN) 1 TAB TAB Dose: 1 TAB ORAL NOW Label Comments: <<may be substituted for 5/500>> REC MAX DAILY DOSE ACETAMINOPHEN: 4000 MG/24 HR MAY INCREASE FALL RISK NORCO 5-325 (HYDROcodone BIT/ACETAMINOPHEN) NDC: 52407644115 NICODERM 21 MG PATCH(NICOTINE) 1 PATCH PATCH Dose: 1 PATCH TOPICALLY DAILY Label Comments: WEAR GLOVES FOR HANDLING OR WASH HANDS AFTER HANDLING. NICODERM 21 MG PATCH (NICOTINE) NDC: 92608253342 VITAMIN B1(THIAMINE HCL) 100 MG TAB Dose: 100 MG ORAL DAILY Rx Order Comments: Order filed UNV: Allergies/Duplicates/Interactions differ from hospital orderly VITAMIN B1 (THIAMINE HCL) NDC: 70028483594 FOLIC ACID 1 MG TAB Dose: 1 MG ORAL DAILY (FOLIC ACID) NDC: 82558247962 THERAGRAN(MULTIVITAMINS THERAPEUTIC) 1 TAB TAB Dose: 1 TAB ORAL DAILYB THERAGRAN (MULTIVITAMINS THERAPEUTIC) NDC: 19928369017 IV Medication Additives: MAGNESIUM SULFATE 5 GM/10 ML INJECTION Dose: 2 GM VITAMIN B1 INJ(THIAMINE HCL) 100 MG/ML INJECTION Dose: 100 MG M.V.I. -12(MULTIVITAMINS) 10 ML INJECTION Dose: 10 ML FOLIC ACID 5 MG/ML INJECTION Dose: 1 MG Carriers: NORMAL SALINE(SODIUM CHLORIDE) 1000 ML INJECTION Dose: 1000 ML INTRAVEN NOW (Rate: 500 MLS/HR Duration: 2 HR 2 MIN) Rx Order Comments: Order filed UNV: Allergies/Duplicates/Interactions differ from hospital orderly Additives: (MAGNESIUM SULFATE) NDC: 63896040742 VITAMIN B1 INJ (THIAMINE HCL) NDC: 34676428681 M.V.I. -12 (MULTIVITAMINS) NDC: 32888803404 (FOLIC ACID) NDC: 98300300997 Carriers: NORMAL SALINE (SODIUM CHLORIDE) NDC: 15409602985 NORCO 10-325(HYDROcodone BIT/ACETAMINOPHEN) 1 TAB TAB Dose: 0 TAB ORAL Q4H PRN Reason: MODERATE PAIN Label Comments: <<may be substituted for 10/500>> REC MAX DAILY DOSE ACETAMINOPHEN: 4000 MG/24 HR MAY INCREASE FALL RISK Special Dose Instructions: 1-2 TABS NORCO 10-325 (HYDROcodone BIT/ACETAMINOPHEN) NDC: 82029416563 IV Medication Additives: KCL INJ(POTASSIUM CHLORIDE) 40 MEQ/20 ML INJECTION Dose: 40 MEQ Carriers: NORMAL SALINE(SODIUM CHLORIDE) 500 ML INJECTION Dose: 500 ML INTRAVEN NOW (Rate: 130 MLS/HR Duration: 4 HR) Additives: KCL INJ (POTASSIUM CHLORIDE) NDC: 20127597286 Carriers: NORMAL SALINE (SODIUM CHLORIDE) NDC: 31457648729 IV Medication Additives: KCL INJ(POTASSIUM CHLORIDE) 40 MEQ/20 ML INJECTION Dose: 40 MEQ Carriers: NORMAL SALINE(SODIUM CHLORIDE) 500 ML INJECTION Dose: 500 ML INTRAVEN NOW (Rate: 130 MLS/HR Duration: 4 HR) Rx Order Comments: Order filed UNV: Allergies/Duplicates/Interactions differ from hospital orderly Additives: KCL INJ (POTASSIUM CHLORIDE) NDC: 07288735272 Carriers: NORMAL SALINE (SODIUM CHLORIDE) NDC: 76295308036 BACITRACIN 15 GM OINTMENT Dose: 0 GM TOPICALLY DAILY PRN Is Schedule, No PRN Reason Listed Special Dose Instructions: 1 APPLICATION TO OPEN AREAS ON FINGERS (BACITRACIN) NDC: 31925553076 K-DUR(POTASSIUM CHLORIDE) 20 MEQ TAB Dose: 40 MEQ ORAL NOW Label Comments: TAKE WITH FOOD TO AVOID GI UPSET K-DUR (POTASSIUM CHLORIDE) NDC: 80182557770 Discharge Medications - Medications that patient should continue to take. Review with physician Visit/Account #[id number] (October 14, 2017 9:01am - October 18, 2017 4:02pm) Medication Route Sig/Schedule Precondition/Indication Comments/Instructions Codes NORCO 10-325 TABLET(HYDROcodone BIT/ACETAMINOPHEN) 1 TAB TAB Dose: 1 TAB ORAL TID MODERATE PAIN NORCO 10-325 TABLET (HYDROcodone BIT/ACETAMINOPHEN) [facility]: [id number] History Of Encounters Encounters Visit/Account #[id number] (October 14, 2017 9:01am - October 18, 2017 4:02pm) Account Status Physican Of Record Reason For Visit Visit Diagnosis Start Date/Time Stop Date/Time ER CORDELIA HUBER MD FROSTBITE W/TISSUE NECROSIS OF FINGER OF LEFT HAND T34.532A: FROSTBITE W TISSUE NECROSIS OF LEFT FINGER(S), INIT ENCNTR ICD10 Oct 14, 2017 9:01am Oct 14, 2017 11:26am IN OSWALDO GUERRERO MD FROSTBITE W/TISSUE NECROSIS OF FINGER OF LEFT HAND T34.532A: FROSTBITE W TISSUE NECROSIS OF LEFT FINGER(S), INIT ENCNTR ICD10 Oct 14, 2017 10:13am Oct 18, 2017 4:02pm History of Procedures Procedure List Visit/Account #[id number] (October 14, 2017 9:01am - October 18, 2017 4:02pm) Code/Procedure Date 0HDGXZZ: EXTRACTION OF LEFT HAND SKIN, EXTERNAL APPROACH October 17, 2017 0HDFXZZ: EXTRACTION OF RIGHT HAND SKIN, EXTERNAL APPROACH October 17, 2017 Discharge Instructions Discharge Instructions Visit/Account #[id number] (October 14, 2017 9:01am - October 18, 2017 4:02pm) DISCHARGE INSTRUCTIONS Physician Documentation PROVIDER INSTRUCTIONS Discharge Diet As Tolerated Discharge Activity/Weight Bearing Status As tolerated. Avoid exposing fingers to temperatures below freezing to avoid making injury worse. Other Discharge Instructions Only take pain medicines as needed. Discharge Diet As Tolerated Discharge Activity/Weight Bearing Status As tolerated. Avoid exposing fingers to temperatures below freezing to avoid making injury worse. Other Discharge Instructions Only take pain medicines as needed. CARE MANAGEMENT/HOME HEALTH Care Management Pt needs documented address for [place] pickup prior to leaving hospital. Needs daily transportation to wound care until healed and to clinic appointment with Dr. Andrade on Saturday 10/21. REASON TO CALL PROVIDER Notify Physician if: You have the following: - temperature greater than 101.5 degrees Fahrenheit - uncontrolled pain - persistent nausea/vomiting - any questions or concerns FOLLOW UP APPOINTMENTS Follow Up Appointment Date/Time: Dr. Andrade 10/21/17 in clinic. AT 10:00AM Wound care daily. AT 10:00AM Anhai Walters in 2 weeks. October AT 3:45PM Follow-up tests/procedures/outpatient needs: Housing assistance Social History Social History No Social History Data. Immunizations Immunizations Patient Unit Number: [id number] Immunizations No immunizations recorded.
--- OUTSIDE RECORDS SUMMARY | 2017-12-01 15:57 | XMS REPORT | Continuity Of Care Document ---
Author Author [facility] Organization [facility] Address [address] [place] [address] Phone Care Team Providers Care Flame Gouger Name Role Phone JELLY SALAMANCA, HELLEN AT CONNIE CAPONE MD Unavailable NON-[facility], [facility] PP Results Results No results recorded. Allergies and Adverse Reactions Allergies and Adverse Reactions Patient Unit Number: [id number] Agent Type Reaction Severity Status NO KNOWN ALLERGIES Drug Allergy Unknown Unknown Active Problem List Problem List Visit/Account #[id number] (September 04, 2015 5:04pm - September 04, 2015 5: 53pm) Acute Problems: Code/Condition Comments Documented Start Date Documented Resolved Date Code (s) Back pain ICD10: M54.9 Back pain ICD9: 724.5 Back pain SNOMED: 132754756 Back pain Contusion ICD10: T14.8 Contusion ICD9: 924.9 Contusion SNOMED: 983152990 Contusion Plan of Care Plan Of Care Visit/Account #[id number] (September 04, 2015 5:04pm - September 04, 2015 5: 53pm) Patient Instructions Return if worse or any concern. Follow-up w/your PCP w/in 48 hrs for further evaluation and care. Do not drive while taking Flexeril Vital Signs Vital Signs Visit/Account #[id number] (September 04, 2015 5:04pm - September 04, 2015 5: 53pm) Sign First Result Last Result Code(s) Temperature in Fahrenheit Temperature (Fahrenheit): 97.4 [degF] On September 04, 2015 5:02pm Temperature (Fahrenheit): 97.9 [degF] On September 04, 2015 5:47pm 8310-5 Body Temperature Weight in Kilograms Weight (Kilograms): 84.09 kg On September 04, 2015 5:02pm 3141-9 Weight Measured 17070-9 Body weight measured in kilograms Functional Status Functional and Cognitive Status No Functional Status Data Medications Inpatient/Ordered Medications - Medications administered during hospital visit Visit/Account #[id number] (September 04, 2015 5:04pm - September 04, 2015 5: 53pm) Medication Route Sig/Schedule Precondition/Indication Comments/Instructions Codes ZOFRAN ODT(ONDansetron HCL) 4 MG TAB Dose: 4 MG ORAL NOW Label Comments: MAY INCREASE FALL RISK Ondansetron 4 MG Disintegrating Oral Tablet (RxNorm): 997439 ZOFRAN ODT (ONDansetron HCL) NDC: 26889037473 PERCOCET 5/325(OxyCODONE/ACETAMINOPHEN) 1 TAB TAB Dose: 2 TAB ORAL NOW Label Comments: MAX REC DOSE ACETAMINOPHEN: 4000MG/24HRS MAY INCREASE FALL RISK Acetaminophen 325 MG / Oxycodone Hydrochloride 5 MG Oral Tablet (RxNorm): 5255613 PERCOCET 5/325 (OxyCODONE/ACETAMINOPHEN) NDC: 66525807330 Discharge Medications - Medications that patient should continue to take. Review with physician Visit/Account #[id number] (September 04, 2015 5:04pm - September 04, 2015 5: 53pm) Medication Route Sig/Schedule Precondition/Indication Comments/Instructions Codes Toradol(KETOROLAC TROMETHAMINE) 10 MG TAB Dose: 1 TAB ORAL EVERY 8 HOURS Ketorolac Tromethamine 10 MG Oral Tablet (RxNorm): 333112 Toradol (KETOROLAC TROMETHAMINE) NDC: 86603105019 Flexeril(CYCLOBENZAPRINE HCL) 10 MG TAB Dose: 1 TAB ORAL EVERY 8 HOURS SPASM Cyclobenzaprine hydrochloride 10 MG Oral Tablet (RxNorm): 060497 Flexeril (CYCLOBENZAPRINE HCL) NDC: 86395708600 History Of Encounters Encounters Visit/Account #[id number] (September 04, 2015 5:04pm - September 04, 2015 5: 53pm) Account Status Physican Of Record Reason For Visit Visit Diagnosis Start Date/Time Stop Date/Time ER HELLEN REAVES MD FALL S30.0XXA: CONTUSION OF LOWER BACK AND PELVIS, INITIAL ENCOUNTER ICD10 Sep 04, 2015 5:04pm Sep 04, 2015 5:53pm History of Procedures Procedure List No procedures recorded. Discharge Instructions Discharge Instructions Visit/Account #[id number] (September 04, 2015 5:04pm - September 04, 2015 5: 53pm) DISCHARGE INSTRUCTIONS Physician Documentation Social History Social History No Social History Data. Immunizations Immunizations Patient Unit Number: [id number] Immunizations No immunizations recorded.
--- OUTSIDE RECORDS SUMMARY | 2017-12-01 15:58 | XMS REPORT | Continuity Of Care Document ---
Author Author [facility] Organization [facility] Address [address] [place] [address] Phone Care Team Providers Care Network Operations Specialist Name Role Phone SHEN SALAMANCA, CYNTHIA Locke AT MAYO SALAMANCA, CORDELIA Brown CP UNASSIGNED, ED PHYSICIAN Unavailable Unavailable MAYRA MOREJON MD Unavailable NON-[facility], [facility] PP Results Lab Results Visit/Account #[id number] (August 13, 2016 4:54am - August 14, 2016 7:00pm) Test Result Date/Time 00464-2: COMPLETE BLOOD COUNT WITH DIFF WHITE BLOOD COUNT(4.0-11.0 10E3/UL) 14.3 10E3/UL August 13, 2016 5:10am 4.7 10E3/UL August 14, 2016 7:01am RED BLOOD COUNT(4.00-5.20 10E6/UL) 4.18 10E6/UL August 13, 2016 5:10am 2.99 10E6/UL August 14, 2016 7:01am HEMOGLOBIN(12.0-16.0 G/DL) 12.8 G/DL August 13, 2016 5:10am 9.2 G/DL August 14, 2016 7:01am HEMATOCRIT(36.0-46.0 %) 37.4 % August 13, 2016 5:10am 28.2 % August 14, 2016 7:01am MEAN CORPUSCULAR VOLUME(82.0-100.0 FL) 89.5 FL August 13, 2016 5:10am 94.3 FL August 14, 2016 7:01am 40309-9: MEAN CORPUSCULAR HEMOGLOBIN(26.0-34.0 PG) 30.6 PG August 13, 2016 5:10am 30.8 PG August 14, 2016 7:01am MEAN CORPUSCULAR HGB CONC(31.5-36.5 G/DL) 34.2 G/DL August 13, 2016 5:10am 32.6 G/DL August 14, 2016 7:01am RED CELL DISTRIBUTION WIDTH(11.5-14.5 %) 13.2 % August 13, 2016 5:10am 13.7 % August 14, 2016 7:01am 777-3: PLATELET COUNT(150-450 10E3/UL) 290 10E3/UL August 13, 2016 5:10am 169 10E3/UL August 14, 2016 7:01am MEAN PLATELET VOLUME(8.2-12.4 FL) 9.8 FL August 13, 2016 5:10am 10.2 FL August 14, 2016 7:01am 770-8: NEUTROPHILS % (AUTO)(40-70 %) 77 % August 13, 2016 5:10am 44 % August 14, 2016 7:01am LYMPHOCYTES % (AUTO)(15-45 %) 16 % August 13, 2016 5:10am 47 % August 14, 2016 7:01am 5905-5: MONOCYTES % (AUTO)(2-10 %) 7 % August 13, 2016 5:10am 7 % August 14, 2016 7:01am 713-8: EOSINOPHILS % (AUTO)(0-6 %) 0 % August 13, 2016 5:10am 1 % August 14, 2016 7:01am 706-2: BASOPHILS % (AUTO)(0-1 %) 0 % August 13, 2016 5:10am 0 % August 14, 2016 7:01am 28308-2: IMMATURE GRANS % (AUTO)(0-0 %) 0 % August 13, 2016 5:10am 0 % August 14, 2016 7:01am NUCLEATED RBCS (AUTO)(0-0 %) 0 % August 13, 2016 5:10am 0 % August 14, 2016 7:01am 751-8: NEUTROPHILS # (AUTO)(2.5-7.5 10E3/UL) 11.0 10E3/UL August 13, 2016 5:10am 2.1 10E3/UL August 14, 2016 7:01am 83747-8: LYMPHOCYTES # (AUTO)(1.0-4.0 10E3/UL) 2.3 10E3/UL August 13, 2016 5:10am 2.2 10E3/UL August 14, 2016 7:01am 742-7: MONOCYTES # (AUTO)(0.2-0.8 10E3/UL) 0.9 10E3/UL August 13, 2016 5:10am 0.3 10E3/UL August 14, 2016 7:01am 711-2: EOSINOPHILS # (AUTO)(0.0-0.4 10E3/UL) 0.0 10E3/UL August 13, 2016 5:10am 0.1 10E3/UL August 14, 2016 7:01am 704-7: BASOPHILS # (AUTO)(0.0-0.2 10E3/UL) 0.1 10E3/UL August 13, 2016 5:10am 0.0 10E3/UL August 14, 2016 7:01am IMMATURE GRANS # (AUTO)(0.0-0.0 10E3/UL) 0.1 10E3/UL August 13, 2016 5:10am 0.0 10E3/UL August 14, 2016 7:01am DIFF TYPE AUTOMATED August 13, 2016 5:10am AUTOMATED August 14, 2016 7:01am 48172-7: PROTHROMBIN TIME WITH INR PROTHROMBIN TIME(12.1-14.0 SEC) 14.3 SEC August 13, 2016 5:10am 72458-4: INR 1.10 Result Comments: INR reference interval applies to patients on anticoagulant therapy. Suggested INR therapeutic range for oral anticoagulant therapy: (Stabilized anticoagulated patients) Routine Therapy: 2.0 to 3.0 Recurrent Myocardial Infarction: 2.5 to 3.5 Mechanical Prosthetic Valves: 2.5 to 3.5 August 13, 2016 5:10am PARTIAL THROMBOPLASTIN TIME PARTIAL THROMBOPLASTIN TIME(22.2-37.4 SEC) 29.6 SEC August 13, 2016 5:10am 98331-1: COMPLETE METABOLIC PROFILE GLUCOSE(70-110 MG/DL) 84 MG/DL August 13, 2016 5:10am 91 MG/DL August 14, 2016 7:01am BLOOD UREA NITROGEN(6-20 MG/DL) 25 MG/DL August 13, 2016 5:10am 14 MG/DL August 14, 2016 7:01am CREATININE(0.50-1.20 MG/DL) 1.58 MG/DL August 13, 2016 5:10am 0.56 MG/DL August 14, 2016 7:01am 69067-5: EST GLOMERULAR FILTRATION RATE(Greater than or equal to 60) 38 Result Comments: If the patient is of -[place] descent/extraction multiply the eGFR value by 1.212 to obtain the actual eGFR. >=60 mg/dL Normal 30-59 mg/dL Moderate Kidney Disease 15-29 mg/dL Severe Kidney Disease <15 mg/dL Kidney Failure August 13, 2016 5:10am Greater than or equal to 60 Result Comments: If the patient is of -[place] descent/extraction multiply the eGFR value by 1.212 to obtain the actual eGFR. >=60 mg/dL Normal 30-59 mg/dL Moderate Kidney Disease 15-29 mg/dL Severe Kidney Disease <15 mg/dL Kidney Failure August 14, 2016 7:01am BUN CREATININE RATIO(10.0-20.0 RATIO) 16.0 RATIO August 13, 2016 5:10am 25.0 RATIO August 14, 2016 7:01am SODIUM(135-145 MMOL/L) 143 MMOL/L August 13, 2016 5:10am 141 MMOL/L August 14, 2016 7:01am POTASSIUM(3.6-5.0 MMOL/L) 3.7 MMOL/L August 13, 2016 5:10am 3.6 MMOL/L August 14, 2016 7:01am CHLORIDE(101-111 MMOL/L) 106 MMOL/L August 13, 2016 5:10am 115 MMOL/L August 14, 2016 7:01am CO2(21-31 MMOL/L) 22 MMOL/L August 13, 2016 5:10am 23 MMOL/L August 14, 2016 7:01am ANION GAP(8-18) 19 August 13, 2016 5:10am 7 August 14, 2016 7:01am OSMO CALCULATED(270.0-290.0) 288.6 August 13, 2016 5:10am 281.3 August 14, 2016 7:01am CALCIUM(8.5-10.5 MG/DL) 10.5 MG/DL August 13, 2016 5:10am 7.7 MG/DL August 14, 2016 7:01am BILIRUBIN,TOTAL(0.1-1.2 MG/DL) 1.5 MG/DL August 13, 2016 5:10am 0.6 MG/DL August 14, 2016 7:01am ALKALINE PHOSPHATASE(42-121 IU/L) 64 IU/L August 13, 2016 5:10am 50 IU/L August 14, 2016 7:01am ASPARTATE AMINO TRANSFERASE(10-42 IU/L) 66 IU/L August 13, 2016 5:10am 37 IU/L August 14, 2016 7:01am ALANINE AMINOTRANSFERASE(10-60 IU/L) 26 IU/L August 13, 2016 5:10am 23 IU/L August 14, 2016 7:01am TOTAL PROTEIN(6.4-8.2 G/DL) 8.7 G/DL August 13, 2016 5:10am 5.6 G/DL August 14, 2016 7:01am ALBUMIN(3.5-5.5 G/DL) 5.0 G/DL August 13, 2016 5:10am 3.2 G/DL August 14, 2016 7:01am GLOBULIN(2.4-3.6) 3.7 August 13, 2016 5:10am 2.4 August 14, 2016 7:01am ALBUMIN/GLOBULIN RATIO(0.9-1.8 RATIO) 1.4 RATIO August 13, 2016 5:10am 1.3 RATIO August 14, 2016 7:01am BASIC METABOLIC PANEL GLUCOSE(70-110 MG/DL) 71 MG/DL August 13, 2016 7:00am BLOOD UREA NITROGEN(6-20 MG/DL) 22 MG/DL August 13, 2016 7:00am CREATININE(0.50-1.20 MG/DL) 1.18 MG/DL August 13, 2016 7:00am 61551-2: EST GLOMERULAR FILTRATION RATE(Greater than or equal to 60) 53 Result Comments: If the patient is of -[place] descent/extraction multiply the eGFR value by 1.212 to obtain the actual eGFR. >=60 mg/dL Normal 30-59 mg/dL Moderate Kidney Disease 15-29 mg/dL Severe Kidney Disease <15 mg/dL Kidney Failure August 13, 2016 7:00am BUN CREATININE RATIO(10.0-20.0 RATIO) 19.0 RATIO August 13, 2016 7:00am SODIUM(135-145 MMOL/L) 139 MMOL/L August 13, 2016 7:00am POTASSIUM(3.6-5.0 MMOL/L) 3.6 MMOL/L August 13, 2016 7:00am CHLORIDE(101-111 MMOL/L) 112 MMOL/L August 13, 2016 7:00am CO2(21-31 MMOL/L) 19 MMOL/L August 13, 2016 7:00am ANION GAP(8-18) 12 August 13, 2016 7:00am OSMO CALCULATED(270.0-290.0) 279.3 August 13, 2016 7:00am CALCIUM(8.5-10.5 MG/DL) 8.3 MG/DL August 13, 2016 7:00am 92042-6: MAGNESIUM 01365-7: MAGNESIUM(1.8-2.5 MG/DL) 2.1 MG/DL August 13, 2016 5:10am TOTAL CPK TOTAL CPK(22-269 IU/L) 2287 IU/L August 13, 2016 5:10am 1571 IU/L August 13, 2016 9:59am 699 IU/L August 14, 2016 7:01am 32498-0: [place] [address]-0: CARDIAC TROPONIN I(0.01-0.04 NG/ML) 0.01 NG/ML Result Comments: REFERENCE RANGES: NEGATIVE < 0.04 NG/ML POSSIBLE MYCARDIAL INVOLVEMENT >/=0.04 NG/ML INTERPRET TROPONIN I RESULT IN LIGHT OF THE TOTAL CLINICAL PRESENTATION INCLUDING CLINICAL HISTORY. ANY CONDITION RESULTING IN MYOCARDIAL INJURY CAN POTENTIALLY ELEVATE TROPONIN I LEVELS ABOVE EXPECTED NORMAL RANGES. NOTE NEW REFERENCE RANGE August 13, 2016 5:10am DRUGS OF ABUSE, URINE 17997-5: OPIATE SCREEN,URINE(NEGATIVE) NEGATIVE August 13, 2016 5:23am 89831-8: BARBITURATES SCREEN, URINE(NEGATIVE) NEGATIVE August 13, 2016 5:23am 84975-3: AMPHETAMINE SCREEN,URINE(NEGATIVE) PRESUMPTIVE POSITIVE August 13, 2016 5:23am BENZODIAZEPINES SCREEN,URINE(NEGATIVE) NEGATIVE August 13, 2016 5:23am COCAINE SCREEN, URINE(NEGATIVE) NEGATIVE August 13, 2016 5:23am CANNABINOID SCREEN,URINE(NEGATIVE) PRESUMPTIVE POSITIVE August 13, 2016 5:23am Allergies and Adverse Reactions Allergies and Adverse Reactions Patient Unit Number: [id number] Agent Type Reaction Severity Status NO KNOWN ALLERGIES Drug Allergy Unknown Unknown Active Problem List Problem List Visit/Account #[id number] (August 13, 2016 4:54am - August 14, 2016 7:00pm) Acute Problems: Code/Condition Comments Documented Start Date Documented Resolved Date Code (s) Marijuana use ICD10: F12.10 Cannabis abuse ICD9: 305.20 Cannabis abuse SNOMED: 76977886 Cannabis abuse Rhabdomyolysis ICD10: M62.82 Rhabdomyolysis ICD9: 728.88 Rhabdomyolysis SNOMED: 917138160 Rhabdomyolysis Chronic Problems: Methamphetamine abuse ICD10: F15.10 Methamphetamine abuse ICD9: 305.70 Methamphetamine abuse SNOMED: 542755452 Methamphetamine abuse Acute kidney injury ICD10: N17.9 Acute kidney injury ICD9: 584.9 Acute kidney injury SNOMED: 86467493 Acute kidney injury Plan of Care Plan Of Care Visit/Account #[id number] (August 13, 2016 4:54am - August 14, 2016 7:00pm) Patient Instructions Instructions [facility] Drug/Alcohol Use Resources for Recovery from Drug/Alcohol Use [address] [place] [address] Website: www.[email or web address] Email: [email or web address]org [facility] offers Detoxification services, Residential services, Outpatient services, and Assessments. We can be reached at the phone number listed 02/05. [facility] [address] [place] [address] Website: [email or web address] Email: [email or web address] / [employer]org Open 7a-9p Tuesday-Tuesday Open 1p-9p Tuesday Closed Tuesday [facility] is a drop-in center that offers support and events in a sober environment during the days/times listed. Alcoholics Anonymous (AA) Meetings in [place] and [facility] [address] [place] [address] Website: www.[email or web address] Sourav [place] and Surrounding Area (For those who have been affected by someone else's drinking) , Website: [email or web address]-[email or web address] Email: Narcotics Anonymous (NA) Meetings in [facility] [address] [place] [address] Website: www.[email or web address] Email: [email or web address] Vital Signs Vital Signs Visit/Account #[id number] (August 13, 2016 4:54am - August 14, 2016 7:00pm) Sign First Result Last Result Code(s) Blood Pressure 105/ 61 mm[Hg] On August 13, 2016 9:15am 127/ 77 mm[Hg] On August 14, 2016 5:50pm 8480-6 BP Systolic Heart Rate/Pulse Pulse Rate (adult): 84 /min On August 13, 2016 9:15am Pulse Rate (adult): 55 /min On August 14, 2016 5:50pm 8867-4 Heart Rate 8893-0 Pulse rate Respiratory Rate Respiratory Rate: 14 /min On August 13, 2016 9:15am Respiratory Rate: 20 /min On August 14, 2016 5:50pm 9279-1 Respiratory rate Temperature in Fahrenheit Temperature (Fahrenheit): 98.1 [degF] On August 13, 2016 4:52am Temperature (Fahrenheit): 97.5 [degF] On August 14, 2016 5:50pm 8310-5 Body Temperature Weight in Kilograms Weight (Kilograms): 71 kg On August 13, 2016 4:52am 3141-9 Weight Measured 94050-1 Body weight measured in kilograms Functional Status Functional and Cognitive Status No Functional Status Data Medications Home Medications - Medications that the patient was taking prior to arrival at the hospital Visit/Account #[id number] (August 13, 2016 4:54am - August 14, 2016 7:00pm) Medication Route Sig/Schedule Precondition/Indication Comments/Instructions Codes VIBRAMYCIN(DOXYCYCLINE HYCLATE) 100 MG CAP Dose: 100 MG ORAL TWICE A DAY doxycycline hyclate 100 MG Oral Capsule (RxNorm): 7533476 VIBRAMYCIN (DOXYCYCLINE HYCLATE) NDC: 79823658882 Toradol(KETOROLAC TROMETHAMINE) 10 MG TAB Dose: 1 TAB ORAL EVERY 8 HOURS Ketorolac Tromethamine 10 MG Oral Tablet (RxNorm): 005245 Toradol (KETOROLAC TROMETHAMINE) NDC: 04042580559 Flexeril(CYCLOBENZAPRINE HCL) 10 MG TAB Dose: 1 TAB ORAL EVERY 8 HOURS SPASM Cyclobenzaprine hydrochloride 10 MG Oral Tablet (RxNorm): 185414 Flexeril (CYCLOBENZAPRINE HCL) NDC: 96462689517 POTASSIUM CHLORIDE(POTASSIUM CHLORIDE) 20 MEQ TAB.ER.PRT Dose: 20 MEQ ORAL 3 TIMES A DAY Potassium Chloride 20 MEQ Extended Release Oral Tablet (RxNorm): 863094 POTASSIUM CHLORIDE (POTASSIUM CHLORIDE) NDC: 05327568412 ZOLOFT(SERTRALINE HCL) 100 MG TAB Dose: 100 MG ORAL DAILY Sertraline 100 MG Oral Tablet [Zoloft] (RxNorm): 089318 ZOLOFT (SERTRALINE HCL) NDC: 45304196505 FERROUS SULFATE(FERROUS SULFATE) 325 ( 65 )MG TABLET Dose: 325 MG ORAL DAILY ferrous sulfate 325 MG Oral Tablet (RxNorm): 032799 FERROUS SULFATE (FERROUS SULFATE) NDC: 33241127311 CLONAZEPAM(ClonAZEPAM) 0.5 MG TABLET Dose: 0.5 MG ORAL TWICE A DAY ANXIETY/AGITATION Rx Instructions: PER KTRA LAST FILLED 02/22 Clonazepam 0.5 MG Oral Tablet (RxNorm): 906808 CLONAZEPAM (ClonAZEPAM) NDC: 81110836444 Inpatient/Ordered Medications - Medications administered during hospital visit Visit/Account #[id number] (August 13, 2016 4:54am - August 14, 2016 7:00pm) Medication Route Sig/Schedule Precondition/Indication Comments/Instructions Codes IV Medication Carriers: NORMAL SALINE(SODIUM CHLORIDE) 1000 ML INJECTION Dose: 1000 ML INTRAVEN .Q1H (Rate: 1000 MLS/HR Duration: 1 HR) Carriers: Sodium Chloride 0.154 MEQ/ML Injectable Solution (RxNorm): 246849 NORMAL SALINE (SODIUM CHLORIDE) NDC: 31758439277 IV Medication Carriers: NORMAL SALINE(SODIUM CHLORIDE) 1000 ML INJECTION Dose: 1000 ML INTRAVEN .Q1H (Rate: 1000 MLS/HR Duration: 1 HR) Carriers: Sodium Chloride 0.154 MEQ/ML Injectable Solution (RxNorm): 700432 NORMAL SALINE (SODIUM CHLORIDE) NDC: 27761979307 IV Medication Carriers: NORMAL SALINE(SODIUM CHLORIDE) 1000 ML INJECTION Dose: 1000 ML INTRAVEN .Q1H (Rate: 1000 MLS/HR Duration: 1 HR) Carriers: Sodium Chloride 0.154 MEQ/ML Injectable Solution (RxNorm): 903222 NORMAL SALINE (SODIUM CHLORIDE) NDC: 83980488556 PEPCID(FAMOTIDINE) 20 MG TAB Dose: 20 MG ORAL TWICE A DAY Famotidine 20 MG Oral Tablet (RxNorm): 553651 PEPCID (FAMOTIDINE) NDC: 38510851523 IV Medication Carriers: NORMAL SALINE(SODIUM CHLORIDE) 1000 ML INJECTION Dose: 1000 ML INTRAVEN .Q6H40M (Rate: 150 MLS/HR Duration: 6 HR 40 MIN) Carriers: Sodium Chloride 0.154 MEQ/ML Injectable Solution (RxNorm): 297859 NORMAL SALINE (SODIUM CHLORIDE) NDC: 57411675187 LOVENOX(ENOXAPARIN) 40 MG/0.4 ML INJECTION Dose: 0.4 ML SUBCUTANEOUSLY DAILY@06 Label Comments: INJECT SC INTO ABDOMINAL WALL ONLY. 0.4 ML Enoxaparin sodium 100 MG/ML Prefilled Syringe [Lovenox] (RxNorm): 234506 LOVENOX (ENOXAPARIN) NDC: 98133896555 FERROUS SULFATE 325 MG TAB Dose: 325 MG ORAL DAILY Label Comments: TAKE WITH FOOD IF STOMACH UPSET OCCURS. OTHERWISE TAKE BETWEEN MEALS FOR MAXIMUM ABSORPTION. ferrous sulfate 325 MG Oral Tablet (RxNorm): 489015 (FERROUS SULFATE) NDC: 37990110590 ZOLOFT(SERTRALINE HCL) 100 MG TAB Dose: 100 MG ORAL DAILY Label Comments: MAY INCREASE FALL RISK Sertraline 100 MG Oral Tablet [Zoloft] (RxNorm): 010967 ZOLOFT (SERTRALINE HCL) NDC: 86493187615 Discharge Medications - Medications that patient should continue to take. Review with physician Visit/Account #[id number] (August 13, 2016 4:54am - August 14, 2016 7:00pm) Medication Route Sig/Schedule Precondition/Indication Comments/Instructions Codes ZOLOFT(SERTRALINE HCL) 100 MG TAB Dose: 100 MG ORAL DAILY Sertraline 100 MG Oral Tablet [Zoloft] (RxNorm): 733490 ZOLOFT (SERTRALINE HCL) NDC: 30688628310 FERROUS SULFATE(FERROUS SULFATE) 325 ( 65 )MG TABLET Dose: 325 MG ORAL DAILY ferrous sulfate 325 MG Oral Tablet (RxNorm): 286241 FERROUS SULFATE (FERROUS SULFATE) NDC: 39485432710 CLONAZEPAM(ClonAZEPAM) 0.5 MG TABLET Dose: 0.5 MG ORAL TWICE A DAY ANXIETY/AGITATION Rx Instructions: PER KTRA LAST FILLED 02/22 Clonazepam 0.5 MG Oral Tablet (RxNorm): 234820 CLONAZEPAM (ClonAZEPAM) NDC: 25127058321 History Of Encounters Encounters Visit/Account #[id number] (August 13, 2016 4:54am - August 14, 2016 7:00pm) Account Status Physican Of Record Reason For Visit Visit Diagnosis Start Date/Time Stop Date/Time DARIO HUBER MD METHAMPHETAMINE ABUSE; RHABDOMYOLYSIS M62.82: RHABDOMYOLYSIS ICD10 Aug 13, 2016 4:54am Aug 13, 2016 8:50am Job GOTTI MD METHAMPHETAMINE ABUSE; RHABDOMYOLYSIS M62.82: RHABDOMYOLYSIS ICD10 Aug 13, 2016 7:23am Aug 14, 2016 7:00pm History of Procedures Procedure List No procedures recorded. Discharge Instructions Discharge Instructions Visit/Account #[id number] (August 13, 2016 4:54am - August 14, 2016 7:00pm) DISCHARGE INSTRUCTIONS Physician Documentation PROVIDER INSTRUCTIONS Discharge Diet Regular Discharge Activity/Weight Bearing Status As tolerated. Other Discharge Instructions 1. Push fluids. 2. Refrain from drug use. 3. Follow up with primary care physician at [facility]. 4. Call with any concerns. Discharge Diet Regular Discharge Activity/Weight Bearing Status As tolerated. Other Discharge Instructions 1. Push fluids. 2. Refrain from drug use. 3. Follow up with primary care physician at [facility]. 4. Call with any concerns. REASON TO CALL PROVIDER Notify Physician if: Worsening fever, chills, chest pain, shortness of breath, abdominal pain, nausea, vomiting, muscle pains. FOLLOW UP APPOINTMENTS Follow Up Appointment Date/Time: instructed patient to call Dr Renner at [facility] on Mon for an appt in 14 days [phone]. their office is closed at this time. Follow-up tests/procedures/outpatient needs: None. Social History Social History No Social History Data. Immunizations Immunizations Patient Unit Number: [id number] Immunizations No immunizations recorded.
[2017-12-01 16:13] LABS: CLARITY,URINE BLOODY; COLOR,URINE RED; GLUCOSE, URINE (UA) NEGATIVE (NEGATIVE); KETONES,URINE 1+ (NEGATIVE); LEUKOCYTE ESTERASE ,URINE 3+ (NEGATIVE); NITRITE,URINE POSITIVE (NEGATIVE); PH,URINE 5 (5-9); PROTEIN,URINE 3+ (NEGATIVE); UROBILINOGEN,URINE 4 MG/DL (NORMAL)
--- NOTE | 2017-12-01 16:22 | ED GU-Female ---
General Chief Complaint: -Female Stated Complaint: VAGINAL PRESSURE/BLEEDING Nursing Triage Note: NAUSEA X1 MONTH, VAGINAL PRESSURE STARTED TODAY AND SOME VAGINAL BLEEDING. SHE IS NT SURE IF IT IS HER PERIOD OR NOT. Nursing Sepsis Screen: No Definite Risk Source: patient Exam Limitations: no limitations History of Present Illness Date Seen by Provider: Dec 01, 2017 Time Seen by Provider: 16:19 Initial Comments To ER with reports of vaginal bleeding that started today, nausea for one month , unusual appetite. She believes she might be . She does moved here from [facility]. She's had a tubal ligation 5 years ago. She was seen in [facility] in February 2017 and told she was . However she never followed up on that. She's had monthly menstrual cycles since February 2017 and believes it's possible she could still be from that visit. G6. Does not have her regular physician. States she is supposed to smoke pot for her MS which is mild. She does smoke 2 packs of cigarettes per day. States that her usual menstrual cycle began on 11/14/17 but she only spotted briefly and then the bleeding recurred yesterday. Timing/Duration: constant Severity/Quality: cramping Activities at Onset: none Prior Genitourinary Problems: none Allergies and Home Medications Allergies Coded Allergies: No Known Drug Allergies (Verified , 11/27/09) Home Medications Albuterol 17 Gm Aerosol, 1 GM IH Q6H, #1 Ref 0 Prescribed by: ALBA VASQUEZ MD on 03/26/10 0021 Oxycodone Hcl/Acetaminophen 1 Each Tablet, 1-2 EACH PO Q4H PRN, (Reported) Vits W-Ca,Fe,Fa(<1MG) 1 Each Tablet, 1 EACH PO DAILY, (Reported) Constitutional: see HPI, No chills, No fever EENTM: see HPI Respiratory: no symptoms reported Cardiovascular: no symptoms reported Genitourinary: no symptoms reported Skin: no symptoms reported Psychiatric/Neurological: See HPI, Anxiety Past Hxwbtpa-[id number]-Kcwjzo Hx Patient Social History Recent Foreign Travel: No Contact w/Someone Who Travel: No Recent Infectious Disease Expo: No Reproductive System Hx Reproductive Disorders: No Physical Exam Vital Signs Vital Signs - First Documented 12/01/17 16:11 Temp 98.1 Pulse 85 Resp 18 B/P (MAP) 106/63 (77) Pulse Ox 98 Capillary Refill : Less Than 3 Seconds General Appearance: WD/WN, no apparent distress HEENT: PERRL/EOMI, normal ENT inspection Neck: non-tender, full range of motion Respiratory: no respiratory distress, no accessory muscle use Gastrointestinal: normal bowel sounds, non tender, soft Extremities: normal range of motion, non-tender Neurologic/Psychiatric: alert, normal mood/affect, oriented x 3 Skin: normal color, warm/dry Progress/Results/Core Measures Suspected Sepsis Recent Fever Within 48 Hours: No Infection Criteria Present: None New/Unexplained Altered Menta: No Sepsis Screen: No Definite Risk Sepsis Diagnosis: SIRS Temperature:98.1 Pulse: 85 Respiratory Rate: 18 Laboratory Tests 12/01/17 16:20: White Blood Count 10.6 Blood Pressure 106 /63 Mean: 77 Laboratory Tests 12/01/17 16:20: Creatinine 0.85, Platelet Count 257, Total Bilirubin 0.6 Results/Orders Lab Results Laboratory Tests Test 12/01/17 16:05 12/01/17 16:20 Range/Units Urine Color RED H Urine Clarity BLOODY H Urine pH 5 5-9 Urine Specific [place] 1.025 H 1.016-1.022 Urine Protein 3+ H NEGATIVE Urine Glucose (UA) NEGATIVE NEGATIVE Urine Ketones 1+ H NEGATIVE Urine Nitrite POSITIVE H NEGATIVE Urine Bilirubin 1+ H NEGATIVE Urine Urobilinogen 4 H NORMAL MG/DL Urine Leukocyte Esterase 3+ H NEGATIVE Urine RBC (Auto) 5+ H NEGATIVE Urine RBC TNTC H /HPF Urine WBC TNTC H /HPF Urine Crystals NONE /LPF Urine Bacteria FEW H /HPF Urine Casts NONE /LPF Urine Mucus NEGATIVE /LPF Urine Culture Indicated YES Urine Opiates Screen NEGATIVE NEGATIVE Urine Oxycodone Screen NEGATIVE NEGATIVE Urine Methadone Screen NEGATIVE NEGATIVE Urine Propoxyphene Screen NEGATIVE NEGATIVE Urine Barbiturates Screen NEGATIVE NEGATIVE Ur Tricyclic Antidepressants Screen NEGATIVE NEGATIVE Urine Phencyclidine Screen NEGATIVE NEGATIVE Urine Amphetamines Screen POSITIVE H NEGATIVE Urine Methamphetamines Screen POSITIVE H NEGATIVE Urine Benzodiazepines Screen NEGATIVE NEGATIVE Urine Cocaine Screen NEGATIVE NEGATIVE Urine Cannabinoids Screen NEGATIVE NEGATIVE White Blood Count 10.6 4.3-11.0 10^3/uL Red Blood Count 3.72 L 4.35-5.85 10^6/uL Hemoglobin 10.9 L 11.5-16.0 G/DL Hematocrit 33 L 35-52 % Mean Corpuscular Volume 89 80-99 FL Mean Corpuscular Hemoglobin 29 25-34 PG Mean Corpuscular Hemoglobin Concent 33 32-36 G/DL Red Cell Distribution Width 13.8 10.0-14.5 % Platelet Count 257 130-400 10^3/uL Mean Platelet Volume 10.4 7.4-10.4 FL Neutrophils (%) (Auto) 68 42-75 % Lymphocytes (%) (Auto) 25 12-44 % Monocytes (%) (Auto) 5 0-12 % Eosinophils (%) (Auto) 1 0-10 % Basophils (%) (Auto) 0 0-10 % Neutrophils # (Auto) 7.3 1.8-7.8 X 10^3 Lymphocytes # (Auto) 2.7 1.0-4.0 X 10^3 Monocytes # (Auto) 0.5 0.0-1.0 X 10^3 Eosinophils # (Auto) 0.1 0.0-0.3 10^3/uL Basophils # (Auto) 0.0 0.0-0.1 10^3/uL Sodium Level 140 135-145 MMOL/L Potassium Level 3.7 3.6-5.0 MMOL/L Chloride Level 109 H 98-107 MMOL/L Carbon Dioxide Level 21 21-32 MMOL/L Anion Gap 10 5-14 MMOL/L Blood Urea Nitrogen 10 7-18 MG/DL Creatinine 0.85 0.60-1.30 MG/DL Estimat Glomerular Filtration Rate > 60 BUN/Creatinine Ratio 12 Glucose Level 104 70-105 MG/DL Calcium Level 9.0 8.5-10.1 MG/DL Total Bilirubin 0.6 0.1-1.0 MG/DL Aspartate Amino Transf (AST/SGOT) 14 5-34 U/L Alanine Aminotransferase (ALT/SGPT) 10 0-55 U/L Alkaline Phosphatase 67 40-136 U/L Total Protein 7.4 6.4-8.2 GM/DL Albumin 4.2 3.2-4.5 GM/DL Human Chorionic Gonadotropin, Quant < 5 <5 MIU/ML My Orders Orders - ROLF MORALES LOGISTICS ANALYST Cbc With Automated Diff (12/01/17 15:53) Hcg,Quantitative (12/01/17 15:53) Comprehensive Metabolic Panel (12/01/17 15:53) Ua Culture If Indicated (12/01/17 15:53) Drug Screen Stat (Urine) (12/01/17 15:53) Urine Bedside (12/01/17 15:53) Urine Culture (12/01/17 16:05) Ceftriaxone Injection (Rocephin Injectio (12/01/17 16:45) Medications Given in ED Current Medications Medications Dose Ordered Sig/Laura Route Start Time Stop Time Status Last Admin Dose Admin Ceftriaxone Sodium 1000 mg/ Sodium Chloride 50 ml @ 100 mls/hr ONCE ONCE IV 12/01/17 16:45 12/01/17 17:14 12/01/17 17:00 100 MLS/HR Vital Signs/I&O Vital Sign - Last 12Hours 12/01/17 16:11 Temp 98.1 Pulse 85 Resp 18 B/P (MAP) 106/63 (77) Pulse Ox 98 Capillary Refill : Less Than 3 Seconds Blood Pressure Mean: 77 Departure Impression Impression: Primary Impression: examination or test, negative result Additional Impressions: Urinary tract infection Substance use disorder Disposition: 01 HOME, SELF-CARE Condition: Stable Departure-Patient Inst. Decision time for Depature: 16:33 Referrals: [facility] (PCP/Family) Primary Care Physician Patient Instructions: Urinary Tract Infection, Adult (DC) Add. Discharge Instructions: 1. Return to ER for any concerns 2. Antibiotics as directed All discharge instructions reviewed with patient and/or family. Voiced understanding. Scripts Sulfamethoxazole/Trimethoprim (Bactrim Ds Tablet) 1 Each Tablet 1 EACH PO BID, #10 TAB Prov: ROLF MORALES APRN 12/01/17 ROLF MORALES APRN Dec 01, 2017 16:22
[2017-12-01 16:25] LABS: AMPHETAMINE SCREEN, URINE POSITIVE (NEGATIVE); METHAMPHETAMINE SCREEN URINE S POSITIVE (NEGATIVE)
[2017-12-01 16:26] LABS: BARBITURATE SCREEN URINE NEGATIVE (NEGATIVE); BENZODIAZEPINES SCREEN URINE NEGATIVE (NEGATIVE); CANNABINOID SCREEN, URINE NEGATIVE (NEGATIVE); COCAINE SCREEN URINE NEGATIVE (NEGATIVE); METHADONE STAT NEGATIVE (NEGATIVE); OPIATE SCREEN URINE NEGATIVE (NEGATIVE); OXYCODONE STAT NEGATIVE (NEGATIVE); PROPOXYPHENE STAT NEGATIVE (NEGATIVE); TRICYCLIC ANTIDEPRESSANTS SCRE NEGATIVE (NEGATIVE)
[2017-12-01 16:27] LABS: BACTERIA,URINE FEW /HPF; RBC,URINE TNTC /HPF; WBC,URINE TNTC /HPF
[2017-12-01 16:28] LABS: BILIRUBIN,URINE 1+ (NEGATIVE)
[2017-12-01 16:29] LABS: BASOPHILS % (AUTO) 0 % (0-10); EOSINOPHILS # (AUTO) 0.1 10^3/uL (0.0-0.3); EOSINOPHILS % (AUTO) 1 % (0-10); HEMATOCRIT 33 % (35-52); HEMOGLOBIN 10.9 G/DL (11.5-16.0); LYMPHOCYTES # (AUTO) 2.7 X 10^3 (1.0-4.0); LYMPHOCYTES % (AUTO) 25 % (12-44); MEAN CORPUSCULAR HEMOGLOBIN 29 PG (25-34); MEAN CORPUSCULAR HGB CONC 33 G/DL (32-36); MEAN CORPUSCULAR VOLUME 89 FL (80-99); MEAN PLATELET VOLUME 10.4 FL (7.4-10.4); MONOCYTES # (AUTO) 0.5 X 10^3 (0.0-1.0); MONOCYTES % (AUTO) 5 % (0-12); NEUTROPHILS # (AUTO) 7.3 X 10^3 (1.8-7.8); NEUTROPHILS % (AUTO) 68 % (42-75); PLATELET COUNT 257 10^3/uL (130-400); RED BLOOD COUNT 3.72 10^6/uL (4.35-5.85); RED CELL DISTRIBUTION WIDTH 13.8 % (10.0-14.5); WHITE BLOOD COUNT 10.6 10^3/uL (4.3-11.0)
[2017-12-01] MEDS ORDERED: cefTRIAXone INJECTION 1,000 MG in NS (IVPB) 50 ML IV ONE (16:45)
[2017-12-01 16:51] LABS: ALANINE AMINOTRANSFERASE 10 U/L (0-55); ALBUMIN 4.2 GM/DL (3.2-4.5); ALKALINE PHOSPHATASE 67 U/L (40-136); BILIRUBIN,TOTAL 0.6 MG/DL (0.1-1.0); BUN/CREATININE RATIO 12; CARBON DIOXIDE 21 MMOL/L (21-32); CHLORIDE 109 MMOL/L (98-107); CREATININE SERUM 0.85 MG/DL (0.60-1.30); GFR ESTIMATED > 60; GLUCOSE 104 MG/DL (70-105); POTASSIUM 3.7 MMOL/L (3.6-5.0); SODIUM 140 MMOL/L (135-145); TOTAL PROTEIN 7.4 GM/DL (6.4-8.2)
[2017-12-01] MEDS ORDERED: SULF1TAB35 PO (17:14)
[2017-12-01 17:16] VITALS: BP 106/63
== END 2017-12-01 17:22 | disposition home or self-care (01) ==
LOC: EDUNIT# 15:50 → ER 15:52
DX: N39.0 Urinary tract infection, site not specified (principal); F19.10 Other psychoactive substance abuse, uncomplicated; F17.210 Nicotine dependence, cigarettes, uncomplicated; Z32.02 Encounter for pregnancy test, result negative; Z98.51 Tubal ligation status
CPT/HCPCS: 36415; 80053; 80306; 81000; 84702; 84703; 85025; 87077; 87088; 87186; 96365; 99282